=== PATIENT | male | born 1970 | race Caucasian/White ===

== ENCOUNTER 2019-09-07 06:16 | Outpatient (CLI) | payer MEDICARE, SELFPAY ==
[2019-09-07 17:27] LABS: SARS-CoV-2 RNA PCR Negative
== END 2019-09-07 06:17 | disposition home or self-care (01) ==
LOC: ANHCOVIDDT 06:16
PROVIDERS: Visit Provider Internal Medicine Gastroenterology
DX: Z01.812 Encounter for preprocedural laboratory examination (principal); Z11.59 Encounter for screening for other viral diseases
CPT/HCPCS: 87635; C9803; U0003

== ENCOUNTER 2019-09-10 03:03 | Day surgery (SDC) | payer MEDICARE, SELFPAY ==
[2019-09-03 12:31] VITALS: BMI 27.6
[2019-09-10 06:23] VITALS: BP 116/78; PULSE 97; RESP 18; TEMP 36.6; O2SAT 98
[2019-09-10] MEDS: LACTATED RINGERS 1,000 ML 150 ML IV CONT (06:36)
--- NOTE | 2019-09-10 07:46 | WPDANESEPPF ---
Anes - Initial Pre Proc Eval Procedure: Operation Date: 09/10/19 08:00 Proposed Procedures p Screening Colonoscopy - Sawyer Fernando MD Date/Time: 09/10/19 07:46 Surgeon: Sawyer Fernando MD Pre Op Diagnosis: Neoplasm Screening Patient Data Age: 49 Gender: M Height: 5 ft 11 in Weight: 92.3 kg Last Vital Signs Temp 97.9 F 09/10/19 06:23 Pulse 97 09/10/19 06:23 Resp 18 09/10/19 06:23 BP 116/78 09/10/19 06:23 Pulse Ox 98 09/10/19 06:23 Allergies Allergy/AdvReac Type Severity Reaction Status Date / Time No Known Allergies Allergy Unverified 11/15/17 16:38 Home Medications Medication Instructions Recorded Confirmed Type benazepril 20 mg tablet 20 mg PO BID #180 tablet 06/26/19 09/03/19 Rx hydrochlorothiazide 25 mg tablet 25 mg PO DAILY #90 tablet 06/26/19 09/03/19 Rx potassium chloride 10 mEq 10 meq PO DAILY #90 tablet 06/26/19 09/03/19 Rx tablet,extended release Patient hx anesthesia problems: none Family hx anesthesia problems: none PMFSH Social History Social History Smoking status: Never smoker Second hand tobacco smoke exposure: No Alcohol intake: never Anes - Eval Final PreProcedure Day of Procedure 09/10/19 07:46 Patient weight: normal Heart: regular rate and rhythm Lungs: clear to auscultation Airway: Mallampati scale class II Neurological: alert and oriented Last oral intake: >/= 8 hours ASA classification: II Emergent: no Anesthetic plan: proceed Anesthesia type and monitoring: general GIVS and standard monitoring Informed Consent: The patient's anesthetic plan and its attendant risks and benefits were discussed with the patient/family/POA. Questions were solicited and answers provided to the satisfaction of the patient/family/POA.
--- NOTE | 2019-09-10 08:00 | PM.HPGS ---
History of Present Illness History of Present Illness Consent: Risks, benefits, and alternatives have been discussed and questions answered. Patient agrees to proceed with procedure. Chief complaint: Neoplasm Screening Narrative: Moses Christensen is a 49 year old male here for first colonoscopy Review of Systems Constitutional: Constitutional: Denies headache(s) and Denies weakness Eyes: Eyes: Denies blurry vision ENT: Reports Normal hearing present, Denies headache(s) and Denies neck pain Cardiovascular: Cardiovascular: Denies chest pain and Denies dyspnea Respiratory: Respiratory: Denies dyspnea Gastrointestinal: Gastrointestinal: Reports no additional gastrointestinal complaints Genitourinary: Genitourinary: Denies dysuria Musculoskeletal: Musculoskeletal: Denies neck pain Integumentary/Breasts: Skin/Breast: Denies dry skin Neurologic: Reports Normal hearing present, Denies headache(s) and Denies weakness Psychiatric: Psychiatric: Denies anxiety Endocrine: Endocrine: Denies change in body appearance Hematologic/Lymphatic: Hematologic/Lymphatic: Denies easy bleeding Allergic/Immunologic: Allergic/Immunologic: Denies urticaria PMFSH Social History Social History Smoking status: Never smoker Second hand tobacco smoke exposure: No Alcohol intake: never Meds Home Medications and Allergies Home Medications Medication Instructions Recorded Confirmed Type benazepril 20 mg tablet 20 mg PO BID #180 tablet 06/26/19 09/03/19 Rx hydrochlorothiazide 25 mg tablet 25 mg PO DAILY #90 tablet 06/26/19 09/03/19 Rx potassium chloride 10 mEq 10 meq PO DAILY #90 tablet 06/26/19 09/03/19 Rx tablet,extended release Allergies Allergy/AdvReac Type Severity Reaction Status Date / Time No Known Allergies Allergy Unverified 11/15/17 16:38 Vital Signs Vital Signs - 24 hr 09/10/19 06:23 Temperature 97.9 F Pulse Rate 97 Respiratory Rate 18 Blood Pressure 116/78 Pulse Oximetry 98 Exam Const: General: comfortable and no acute distress HENMT: General nose exam: Normal nares present Eyes: General: appearance normal, both eyes and all related structures Neck: Neck: no JVD Resp: Auscultation: clear to auscultation bilaterally Cardio: Rate: regular rate Rhythm: regular rhythm GI: Inspection: non-distended GI Palp: Yes Soft to palpation Skin: General skin exam: normal color Neuro: General: gait normal Speech: normal speech Extrem: General: normal to inspection Psych: Mental Status: mental status grossly normal Assessment and Plan Assessment and plan (1) Colon cancer screening: Code(s): Z12.11 - Encounter for screening for malignant neoplasm of colon Status: Acute Assessment and Plan: will proceed with colonoscopy (2) Essential hypertension: Code(s): I10 - Essential (primary) hypertension Status: Chronic
[2019-09-10 08:20] VITALS: BP 79/46; PULSE 74; RESP 20; O2SAT 96
[2019-09-10 08:30] VITALS: BP 80/52; PULSE 95; RESP 20; O2SAT 97
[2019-09-10 08:40] VITALS: BP 106/70; PULSE 80; RESP 20; O2SAT 100
== END 2019-09-10 09:21 | disposition home or self-care (01) ==
PROVIDERS: PCP Family Medicine; Visit Provider Internal Medicine Gastroenterology
PROC: 0DJD8ZZ Inspection of Lower Intestinal Tract, Via Natural or Artificial Opening Endoscopic (ICD-10-PCS; CPT 45378; principal; 2019-09-10 08:00)
DX: Z12.11 Encounter for screening for malignant neoplasm of colon (principal); K63.5 Polyp of colon; K64.8 Other hemorrhoids
CPT/HCPCS: 45385; 87635; 88305; C9803; J2704; J7120; U0003

== ENCOUNTER 2021-02-12 15:26 | Emergency (ER) | payer MEDICARE, SELFPAY ==
[2021-02-12 15:38] VITALS: BP 134/76; PULSE 73; RESP 16; TEMP 36.5; O2SAT 100
--- NOTE | 2021-02-12 15:51 | ED.EXTPRO ---
HPI - Extremity Problem General Chief complaint: Extremity Problem,Nontraumatic Stated complaint: rt big toe pain Time Seen by Provider: 02/12/21 15:51 Source: patient Mode of arrival: ambulatory Limitations: no limitations History of Present Illness HPI Narrative: Moses Christensen is a 50 yo male with PMH of HTN who comes with a swollen l right great toe along toenail, medial side. She went started but states discussed the point where it is painful enough he can ignore it. Denies having diabetes or other injury to toenail or cutting until done Related Data Allergies Allergy/AdvReac Type Severity Reaction Status Date / Time No Known Allergies Allergy Verified 12/15/20 13:09 Review of Systems Review of Systems: CONSTITUTIONAL: Denies fever, chills, sweats. EYES: Denies visual changes, redness, discharge. ENT: Denies rhinorrhea, congestion, sore throat, otalgia. CARDIOVASCULAR: Denies chest pain, palpitations, edema. RESPIRATORY: Denies dyspnea, wheezing, cough GASTROINTESTINAL: Denies abdominal pain, nausea, vomiting, diarrhea. GENITOURINARY: Denies dysuria, hematuria, abnormal discharge SKIN: Denies rash or itching. NEUROLOGIC: Denies numbness, or focal weakness. PSYCHIATRIC: Denies anxiety or depression. Right great toe swelling along nail PMFSH Past Medical History Medical History Combined hyperlipidemia Essential hypertension History of asthma childhood Surgical History Surgical History Hx of foot surgery (~2004) benign tumor removed Family History Family History Grandparent Diabetes mellitus Hypertension Cerebrovascular accident Carcinoma of colon Family history of heart disease in male family member before age 55 Father Family history of cardiovascular disease Family history of type 2 diabetes mellitus Hypertension Family history of heart disease in male family member before age 55 Mother Family history of Parkinson's disease Social History Social History Smoking status: Never smoker Second hand tobacco smoke exposure: No Alcohol intake: never Comments At time of signature, I agree with nursing past medical, surgical, social and family history. There is no relevant family history pertinent to the presenting complaint. Exam Narrative: GENERAL: This is a well-nourished, well-developed patient, in mild distress. HEAD: normocephalic, atraumatic. EYES: Sclera clear/white. Vision is grossly intact. EARS: External ears normal, . Hearing grossly intact. NOSE: External nose normal without nasal discharge, nares without redness, no rhinorrhea. THROAT: Mucous membranes moist, NECK: Neck supple, CARDIOVASCULAR: Regular rate and rhythm without murmurs, gallops, or rubs. RESPIRATORY: Clear to auscultation. Breath sounds equal bilaterally. No wheezes, rales, or rhonchi. GASTROINTESTINAL: Abdomen soft, SKIN: warm, intact with no suspicious lesions or rash, good texture and turgor. Right great toe paronychia on the medial side of nail NEURO: awake, alert, and oriented to person, place and time. There were no obvious focal neurologic abnormalities. Steady gait EXTREMITIES: Normal range of motion. BACK: Nontender without deformity Course Course Emergency Course: Patient comes with right great toe swelling along the nail and is tender Foot soak for 10 minutes in tech care and warm water; paronychia opened with an 18-gauge needle and expressed about 4 cc of purulent drainage, wrapped foot with 4 x 4 and Haris and will put in postop shoe Started on Keflex Vital Signs Vital signs: Vital Signs Temperature 97.7 F 02/12/21 15:38 Pulse Rate 73 02/12/21 15:38 Respiratory Rate 16 02/12/21 15:38 Blood Pressure 134/76 02/12/21 15:38 Pulse Oximetry 100 02/12/21 15:38
== END 2021-02-12 16:22 | disposition home or self-care (01) ==
PROVIDERS: Emergency Provider Nurse Practitioner; PCP Family Medicine
DX: L03.031 Cellulitis of right toe (principal); I10 Essential (primary) hypertension; E78.2 Mixed hyperlipidemia
CPT/HCPCS: 99213; G0463

== ENCOUNTER 2021-09-11 17:06 | Emergency (ER) | payer BC, SELFPAY ==
--- NOTE | 2021-09-11 17:20 | ED.URI ---
HPI - URI/Sore Throat General Chief Complaint: Upper Respiratory Infection Stated Complaint: sinus drainage Time Seen by Provider: 09/11/21 17:30 Source: patient and RN notes reviewed Mode of arrival: ambulatory Limitations: no limitations History of Present Illness HPI Narrative: 51-year-old male presents with concern for approximately 2-week history of sinus congestion, drainage, cough, sneezing. He denies fever. He denies shortness of breath. He reports he has been trying cough drops, cold water with little relief. He denies shortness of breath, nausea, vomiting, diarrhea. MD elicited complaint: rhinorrhea and nasal congestion Related Data Allergies Allergy/AdvReac Type Severity Reaction Status Date / Time No Known Allergies Allergy Verified 09/11/21 17:28 Review of Systems Review of Systems: CONSTITUTIONAL: Denies malaise, chills, sweats, or fever. EYES: Denies visual changes, redness, or discharge. ENT: Reports rhinorrhea, congestion. Denies sinus pain, otalgia and sore throat. CARDIOVASCULAR: Denies chest pain, palpitations, or edema. RESPIRATORY: Reports cough. Denies dyspnea. GASTROINTESTINAL: Denies abdominal pain, nausea, vomiting, diarrhea SKIN: Denies rash or itching. MUSCULOSKELETAL: Denies myalgia. NEUROLOGIC: Denies headache. All systems reviewed & are unremarkable except as noted in HPI and below PMFSH Past Medical History Medical History Combined hyperlipidemia Essential hypertension History of asthma childhood Surgical History Surgical History Hx of foot surgery (~2004) benign tumor removed Family History Family History Grandparent Diabetes mellitus Hypertension Cerebrovascular accident Carcinoma of colon Family history of heart disease in male family member before age 55 Father Family history of cardiovascular disease Family history of type 2 diabetes mellitus Hypertension Family history of heart disease in male family member before age 55 Mother Family history of Parkinson's disease Social History Social History (Updated 06/22/21 @ 13:16 by Sujatha [place]) Smoking status: Never smoker Second hand tobacco smoke exposure: No Alcohol intake: current Substance use: never Substance use type: does not use Comments At time of signature, agree with nursing past medical, surgical, social and family history. There is no relevant family history pertinent to the presenting complaint Exam Narrative: GENERAL: Well-appearing, well-nourished, and in no acute distress. HEAD: Normocephalic EYES: PERRLA, conjunctivae clear ENT: Nares clear, turbinates edematous and erythematous sinus tenderness. Mucous membranes moist. TM pearly sharif with dull light reflex bilaterally; no tragal tenderness. Oropharynx not erythematous without lesions. Tonsils not enlarged and without exudate, no drooling, no hoarseness, no trismus, uvula midline. NECK: Supple. No lymphadenopathy CHEST: Clear to auscultation, breath sounds equal. No wheezing, rhonchi, rales, or stridor. No respiratory distress, speaks in full sentences. HEART: Regular rate and rhythm. No murmur heard. SKIN: Warm, dry, no rash. NEURO: Alert and oriented x3. PSYCH: Normal mood and affect Course Course Emergency Course: Patient is aware of diagnosis, understands and agrees to treatment plan. Anticipatory guidance given. Patient agrees to follow-up as directed and is aware of reasons to seek care at the emergency department. Portions of this record may have been created with voice recognition software Level of Care: Express Care Visit Vital Signs Vital signs: Reviewed. MDM - URI/Sore Throat MDM Narrative Medical decision making narrative: Differential diagnosis considered: Teague virus, strep pharyngitis, allergic rhinitis, upper respiratory tract infection, sinusitis
[2021-09-11 17:34] VITALS: BP 121/81; PULSE 88; RESP 16; TEMP 36.2; O2SAT 99
== END 2021-09-11 17:39 | disposition home or self-care (01) ==
PROVIDERS: Emergency Provider Nurse Practitioner; PCP Family Medicine
DX: J32.9 Chronic sinusitis, unspecified (principal); J40 Bronchitis, not specified as acute or chronic; E78.2 Mixed hyperlipidemia; I10 Essential (primary) hypertension
CPT/HCPCS: 99213; G0463

== ENCOUNTER 2022-10-24 14:40 | Emergency (ER) | payer BC, SELFPAY ==
[2022-10-24 14:50] VITALS: BP 105/68; PULSE 127; RESP 16; TEMP 37; O2SAT 100
--- NOTE | 2022-10-24 14:51 | ED.GENADULT ---
HPI - General Adult General Chief complaint: Back Pain/Injury Stated complaint: Back spasm's Time Seen by Provider: 10/24/22 14:51 Source: patient, RN notes reviewed and old records reviewed Mode of arrival: ambulatory Limitations: no limitations History of Present Illness HPI narrative: 52-year-old male with a history of autism a presents for generalized lower back pain. States he has had intermittent pain since Monday. No treatment prior to arrival. Currently pain-free. Unable to reproduce pain with movement and palpation. nothing makes the pain better or worse. Denies abdominal pain. Denies any loss of control of bowel or bladder. No numbness or tingling in extremities. No midline tenderness Onset (ago): day(s) (2) Treatments prior to arrival: none Related Data Allergies Allergy/AdvReac Type Severity Reaction Status Date / Time No Known Allergies Allergy Verified 10/24/22 14:59 Review of Systems Review of Systems: All systems reviewed & are unremarkable except as noted in HPI and below Constitutional: Constitutional: Reports no additional constitutional complaints Eyes: Eyes: Reports no additional eye complaints ENT: Reports system reviewed and no additional complaints, except as documented Cardiovascular: Cardiovascular: Reports no additional cardiovascular complaints, Denies chest pain and Denies dyspnea Respiratory: Respiratory: Reports no additional respiratory complaints, Denies chest congestion, Denies cough and Denies dyspnea Gastrointestinal: Gastrointestinal: Reports no additional gastrointestinal complaints, Denies abdominal pain, Denies nausea and Denies vomiting Musculoskeletal: Musculoskeletal: Reports as per HPI and Reports back pain (Lumbar lower) Integumentary/Breasts: Skin/Breast: Reports system reviewed and no additional complaints, except as docu Neurologic: Reports system reviewed and no additional complaints, except as documented Psychiatric: Psychiatric: Reports no additional psychiatric complaints Allergic/Immunologic: Allergic/Immunologic: Reports no additional allergic/immunologic complaints [facility] Past Medical History Medical History Autism Combined hyperlipidemia Essential hypertension History of asthma childhood Surgical History Surgical History Hx of foot surgery (~2004) benign tumor removed Family History Family History Grandparent Diabetes mellitus Hypertension Cerebrovascular accident Carcinoma of colon Family history of heart disease in male family member before age 55 Father Family history of cardiovascular disease Family history of type 2 diabetes mellitus Hypertension Family history of heart disease in male family member before age 55 Mother Family history of Parkinson's disease Social History Social History Smoking status: Never smoker Second hand tobacco smoke exposure: No Alcohol intake: current Substance use: never Substance use type: does not use Lack of Transportation: No Lack of Food: Never True Current Housing: I Have Housing Concerned About Future Housing: No Difficulty Paying Gas/Electric Bills: No Difficulty Paying for Meds: No Currently Unemployed: No Education: Associate Degree Difficulty w/ Childcare or Family Care: No Comments At the time of my signature, I reviewed and agree with the nursing past medical, surgical, social, and family history. There is no relevant family history pertinent to the patient complaint. Exam Const: General: cooperative, healthy appearing, comfortable, no acute distress, well developed, alert and well nourished Nutritional Appearance: well nourished Orientation/consciousness: patient oriented x3 Limitations: no limitations HENMT: Head: normal to inspe
== END 2022-10-24 15:08 | disposition home or self-care (01) ==
PROVIDERS: Emergency Provider Nurse Practitioner; PCP Family Medicine
DX: S39.012A Strain of muscle, fascia and tendon of lower back, initial encounter (principal); X58.XXXA Exposure to other specified factors, initial encounter; F84.0 Autistic disorder; E78.2 Mixed hyperlipidemia; I10 Essential (primary) hypertension
CPT/HCPCS: 99212; G0463

== ENCOUNTER 2022-10-31 15:55 | Outpatient (CLI) | payer BC, SELFPAY ==
--- NOTE | ~2022-10-31 | XR_ITS ---
XR abdomen/kub 1V DATE: 10/31/2022 16:07 INDICATION: Abdominal pain TECHNIQUE: 2 AP views COMPARISON: None FINDINGS: The psoas shadows are intact. No visceromegaly or significant abnormal calcification is not ed. No evidence of bowel obstruction. Included skeletal structures are unremarkable. IMPRESSION: Negative Reviewed, dictated and finalized at [facility]. Reviewed, dictated and finalized at [facility]. IMPRESSION: Negative
== END 2022-10-31 15:56 | disposition home or self-care (01) ==
LOC: ANHIMG 15:57
PROVIDERS: PCP Family Medicine; Visit Provider Nurse Practitioner Family
DX: R39.9 Unspecified symptoms and signs involving the genitourinary system (principal); R10.9 Unspecified abdominal pain
CPT/HCPCS: 74018

== ENCOUNTER 2022-12-03 08:13 | Emergency (ER) | payer BC, SELFPAY ==
[2022-12-03 08:20] VITALS: BP 114/78; PULSE 109; RESP 20; TEMP 36.8; O2SAT 96
--- NOTE | 2022-12-03 08:28 | ED.GENADULT ---
HPI - General Adult General Chief complaint: Urogenital-Male Stated complaint: Constipation Time Seen by Provider: 12/03/22 08:28 Source: patient, RN notes reviewed and old records reviewed Mode of arrival: ambulatory Limitations: no limitations History of Present Illness HPI narrative: 52-year-old male presents to the [facility] with complaints of urinary issues, had a catheter removed yesterday Patient is autistic, not a good historian. Not sure why he had the catheter except for bedwetting. Onset (ago): day(s) (1) Related Data Allergies Allergy/AdvReac Type Severity Reaction Status Date / Time No Known Allergies Allergy Verified 12/03/22 08:35 Review of Systems Review of Systems: All systems reviewed & are unremarkable except as noted in HPI and below Constitutional: Constitutional: Reports no additional constitutional complaints Eyes: Eyes: Reports no additional eye complaints ENT: Reports system reviewed and no additional complaints, except as documented Cardiovascular: Cardiovascular: Reports no additional cardiovascular complaints, Denies chest pain and Denies dyspnea Respiratory: Respiratory: Reports no additional respiratory complaints, Denies chest congestion, Denies cough and Denies dyspnea Gastrointestinal: Gastrointestinal: Reports no additional gastrointestinal complaints, Denies abdominal pain, Denies nausea and Denies vomiting Genitourinary: Genitourinary: Reports as per HPI Musculoskeletal: Musculoskeletal: Reports no additional musculoskeletal complaints Integumentary/Breasts: Skin/Breast: Reports system reviewed and no additional complaints, except as docu Neurologic: Reports system reviewed and no additional complaints, except as documented Psychiatric: Psychiatric: Reports no additional psychiatric complaints Allergic/Immunologic: Allergic/Immunologic: Reports no additional allergic/immunologic complaints [facility] Past Medical History Medical History Autism Combined hyperlipidemia Essential hypertension History of asthma childhood Nocturnal enuresis Surgical History Surgical History Hx of foot surgery (~2004) benign tumor removed Family History Family History Grandparent Diabetes mellitus Hypertension Cerebrovascular accident Carcinoma of colon Family history of heart disease in male family member before age 55 Father Family history of cardiovascular disease Family history of type 2 diabetes mellitus Hypertension Family history of heart disease in male family member before age 55 Mother Family history of Parkinson's disease Social History Social History Smoking status: Never smoker Second hand tobacco smoke exposure: No Alcohol intake: current Substance use: never Substance use type: does not use Lack of Transportation: No Lack of Food: Never True Current Housing: I Have Housing Concerned About Future Housing: No Difficulty Paying Gas/Electric Bills: No Difficulty Paying for Meds: No Currently Unemployed: No Education: Associate Degree Difficulty w/ Childcare or Family Care: No Comments At the time of my signature, I reviewed and agree with the nursing past medical, surgical, social, and family history. There is no relevant family history pertinent to the patient complaint. Exam Const: General: cooperative, healthy appearing, comfortable, no acute distress, well developed, alert and well nourished Nutritional Appearance: well nourished Orientation/consciousness: patient oriented x3 Limitations: no limitations HENMT: Head: normal to inspection Ears: hearing grossly normal bilaterally and external ears normal Face/Nose/Sinus: Normal external nose present, Normal nares present, Normal nasal mucous membranes and turbina
== END 2022-12-03 08:45 | disposition home or self-care (01) ==
PROVIDERS: Emergency Provider Nurse Practitioner; PCP Family Medicine
DX: T83.511A Infection and inflammatory reaction due to indwelling urethral catheter, initial encounter (principal); E78.49 Other hyperlipidemia; I10 Essential (primary) hypertension
CPT/HCPCS: 81003; 87077; 87086; 87186; 99213; G0463

== ENCOUNTER 2022-12-14 14:26 | Emergency (ER) | payer BC, SELFPAY ==
[2022-12-14 14:37] VITALS: BP 115/74; PULSE 88; RESP 16; TEMP 36.6; O2SAT 99
--- NOTE | 2022-12-14 14:57 | ED.MALEGU ---
HPI - Male Genitourinary General Chief complaint: Urogenital-Male Stated complaint: Male Urinary Problems Time Seen by Provider: 12/14/22 14:55 Source: patient, RN notes reviewed and old records reviewed Mode of arrival: ambulatory Limitations: no limitations History of Present Illness HPI Narrative: 52 year old male who presents to express care with complaints of blood noted in his urine. Patient states that he has catheter in place. Patient was seen today at urology doctors' office for urine dynamics study in [place] today through the [facility] urology group. Patient reports he is concerned he has infection again and wants his urine checked.Doctor Office called and nurse spoke to urology tech and she reported that patient had test done today and that sometimes afterwards blood is noted. Patient is to return to office on the for cystoscopy and follow up appointment. patient was initially seem by urology on the and they did bladder scan and patient was found to have 600 ml in urine residual so catheter was inserted at that time with follow up in their office today for test and replacement of catheter. Patient is autistic and patient is having difficulty coordinating care and what is all going on in regards to urine problem. Patient was initially seen in this clinic on 12/03/2022 with UTI found and antibiotic given with culture found to be positive for Klebsiella pneumoniae and patient was treated with Augmentin. MD Complaint: other (blood in urine and some urinary pain.) Onset (ago): day(s) (today) Duration: constant Related Data Allergies Allergy/AdvReac Type Severity Reaction Status Date / Time No Known Allergies Allergy Verified 12/14/22 14:58 Review of Systems Review of Systems: CONSTITUTIONAL: Denies fever, chills, or sweats. CARDIOVASCULAR: Denies chest pain, palpitations, or edema. RESPIRATORY: Denies cough or dyspnea. GASTROINTESTINAL: Denies abdominal pain, nausea, vomiting, or diarrhea. GENITOURINARY: Reports dysuria, blood noted in urine and #16 catheter connected to leg bag in place, concern voiced for infection. Denies flank pain SKIN: Denies rash or itching. MUSCULOSKELETAL: Denies back pain or myalgia. Denies CVA tenderness NEUROLOGIC: Denies headache All systems reviewed & are unremarkable except as noted in HPI and below PMFSH Past Medical History Medical History Autism Combined hyperlipidemia Essential hypertension History of asthma childhood Nocturnal enuresis Surgical History Surgical History Hx of foot surgery (~2005) benign tumor removed Family History Family History Grandparent Diabetes mellitus Hypertension Cerebrovascular accident Carcinoma of colon Family history of heart disease in male family member before age 55 Father Family history of cardiovascular disease Family history of type 2 diabetes mellitus Hypertension Family history of heart disease in male family member before age 55 Mother Family history of Parkinson's disease Social History Social History Smoking status: Never smoker Second hand tobacco smoke exposure: No Alcohol intake: current Substance use: never Substance use type: does not use Lack of Transportation: No Lack of Food: Never True Current Housing: I Have Housing Concerned About Future Housing: No Difficulty Paying Gas/Electric Bills: No Difficulty Paying for Meds: No Currently Unemployed: No Education: Associate Degree Difficulty w/ Childcare or Family Care: No Comments At time of signature, agree with nursing past medical, surgical, social and family history. There is no relevant family history pertinent to the presenting complaint Exam Narrative: GENERAL: Well-appearing, well-nourished, and i
== END 2022-12-14 15:25 | disposition home or self-care (01) ==
PROVIDERS: Emergency Provider Registered Nurse; PCP Family Medicine
DX: R30.0 Dysuria (principal); R31.9 Hematuria, unspecified; F84.0 Autistic disorder; E78.2 Mixed hyperlipidemia
CPT/HCPCS: 81003; 87077; 87086; 87186; 99213; G0463

== ENCOUNTER 2023-01-20 05:44 | Emergency (ER) | payer BC, MEDICARE, SELFPAY ==
[2023-01-20 05:47] VITALS: BP 147/81; PULSE 100; RESP 15; TEMP 36.4; O2SAT 100
--- NOTE | 2023-01-20 06:18 | ED.MALEGU ---
HPI - Male Genitourinary General Chief complaint: Urogenital-Male Stated complaint: catheter leaking Time Seen by Provider: 01/20/23 06:09 History of Present Illness HPI Narrative: This is a 52-year-old male, with history of urinary retention and autism, who presents to the emergency department stating that his catheter bag is leaking. The patient denies penile pain, leakage of urine at the penis or bleeding. He states the catheter otherwise seems to be functioning well. He tried to repair the bed with tape without success. He has no other complaints at this time. Related Data Allergies Allergy/AdvReac Type Severity Reaction Status Date / Time No Known Allergies Allergy Verified 12/29/22 13:31 Review of Systems Review of Systems: CONSTITUTIONAL: Denies fever, chills, or sweats. CARDIOVASCULAR: Denies chest pain, palpitations, or edema. GASTROINTESTINAL: Denies abdominal pain, nausea, vomiting, or diarrhea. GENITOURINARY: Denies dysuria or hematuria. MUSCULOSKELETAL: Denies back pain, joint pain, or myalgia. NEUROLOGIC: Denies headache, numbness, dizziness, or weakness. PSYCHIATRIC: Denies anxiety or depression. [facility] Past Medical History Medical History Autism BPH (benign prostatic hyperplasia) Cervical muscle strain Combined hyperlipidemia Essential hypertension History of asthma childhood Nocturnal enuresis Surgical History Surgical History Hx of foot surgery (~2004) benign tumor removed Family History Family History Grandparent Diabetes mellitus Hypertension Cerebrovascular accident Carcinoma of colon Family history of heart disease in male family member before age 55 Father Family history of cardiovascular disease Family history of type 2 diabetes mellitus Hypertension Family history of heart disease in male family member before age 55 Mother Family history of Parkinson's disease Social History Social History Smoking status: Never smoker Second hand tobacco smoke exposure: No Alcohol intake: current Substance use: never Substance use type: does not use Lack of Transportation: No Lack of Food: Never True Current Housing: I Have Housing Concerned About Future Housing: No Difficulty Paying Gas/Electric Bills: No Difficulty Paying for Meds: No Currently Unemployed: No Education: Associate Degree Difficulty w/ Childcare or Family Care: No Exam Narrative: GENERAL: Well-appearing, well-nourished, and in no acute distress. HEAD: Normocephalic, atraumatic. EYES: PERRLA and EOMI. CHEST: Clear to auscultation. No respiratory distress. No wheezes rales or rhonchi HEART: Regular rate and rhythm. No murmur heard. Normal peripheral pulses. ABDOMEN: Soft, nontender, nondistended, normal active bowel sounds. : Normal external male genitalia, circumcised, a Garcia catheter is in place draining clear yellow urine. There is no noted leakage of urine or bleeding at the urethral meatus. Leakage of urine from the patient's leg bag is noted with a small hole repaired with tape. EXTREMITIES: Normal range of motion. No edema. PSYCH: Normal mood and affect. Course Course Emergency Course: 06:15 - Bedside ultrasound performed by sc shows Garcia catheter bulb in place and a decompressed bladder. Will replace the patient's leg bag. The patient has a follow-up appointment with his urologist in 4 days for normal catheter replacement. 06:38 - Leg bag replaced by nursing staff with no further leakage. Will discharge. Discussed return and emergency precautions including signs/symptoms of acute abdomen and UTI. The patient voiced understanding and is comfortable with the plan. All questions answered to his satisfaction. Vital Signs Vital signs: Vit
== END 2023-01-20 06:41 | disposition home or self-care (01) ==
PROVIDERS: Emergency Provider Preventive Medicine Aerospace Medicine; PCP Family Medicine
DX: T83.011A Breakdown (mechanical) of indwelling urethral catheter, initial encounter (principal); E78.5 Hyperlipidemia, unspecified; I10 Essential (primary) hypertension; J45.909 Unspecified asthma, uncomplicated
CPT/HCPCS: 99282

== ENCOUNTER 2023-02-08 20:08 | Emergency (ER) | payer BC, MEDICARE, SELFPAY ==
[2023-02-08 20:23] VITALS: BP 122/69; PULSE 65; RESP 12; TEMP 36.6; O2SAT 98
== END 2023-02-08 21:03 | disposition left against medical advice (07) ==
PROVIDERS: PCP Family Medicine
DX: T83.098A Other mechanical complication of other urinary catheter, initial encounter (principal)
CPT/HCPCS: 99199

== ENCOUNTER 2023-04-08 16:49 | Emergency (ER) | payer BC, MEDICARE, SELFPAY ==
[2023-04-08 16:56] VITALS: BP 118/84; PULSE 88; RESP 16; TEMP 36.6; O2SAT 98
--- NOTE | 2023-04-08 16:58 | ED.MALEGU ---
HPI - Male Genitourinary General Chief complaint: Urogenital-Male Stated complaint: Blood In Urine Time Seen by Provider: 04/08/23 16:59 Source: patient and RN notes reviewed Mode of arrival: ambulatory Limitations: no limitations History of Present Illness HPI Narrative: 53 y/o male presented for c/o blood in the urine yesterday. States while having a BM he noticed blood to the urethra draining into the bladder bag. States he uses the bag due to hx incontinence. Denies abdominal pain, flank pain, vomiting, or fever. Related Data Allergies Allergy/AdvReac Type Severity Reaction Status Date / Time No Known Allergies Allergy Verified 12/29/22 13:31 Review of Systems Review of Systems: CONSTITUTIONAL: Denies body aches, fever, chills, or sweats. CARDIOVASCULAR: Denies chest pain, palpitations, or edema. RESPIRATORY: Denies cough or dyspnea. GASTROINTESTINAL: Denies abdominal pain, nausea, vomiting, or diarrhea. GENITOURINARY: Reports hematuria, denies dysuria, frequency, urgency, flank pain SKIN: Denies rash, itching, or wounds. MUSCULOSKELETAL: Denies back pain or myalgia. [facility] Past Medical History Medical History Autism BPH (benign prostatic hyperplasia) Cervical muscle strain Combined hyperlipidemia Essential hypertension History of asthma childhood Nocturnal enuresis Surgical History Surgical History Hx of foot surgery (~2004) benign tumor removed Family History Family History Grandparent Diabetes mellitus Hypertension Cerebrovascular accident Carcinoma of colon Family history of heart disease in male family member before age 55 Father Family history of cardiovascular disease Family history of type 2 diabetes mellitus Hypertension Family history of heart disease in male family member before age 55 Mother Family history of Parkinson's disease Social History Social History Smoking status: Never smoker Second hand tobacco smoke exposure: No Alcohol intake: current Substance use: never Substance use type: does not use Lack of Transportation: No Lack of Food: Never True Current Housing: I Have Housing Concerned About Future Housing: No Difficulty Paying Gas/Electric Bills: No Difficulty Paying for Meds: No Currently Unemployed: No Education: Associate Degree Difficulty w/ Childcare or Family Care: No Comments At time of signature, I have reviewed and agree with nursing past medical, surgical, social and family history unless otherwise noted. Please see nursing chart for further information. There is no relevant family history pertinent to the presenting complaint Exam Narrative: GENERAL: Well-appearing and in no acute distress. ENT: Mucous membranes pink and moist. NECK: Normal AROM. Supple. CHEST: No respiratory distress. Clear to auscultation. HEART: Regular rate and rhythm. ABDOMEN: Soft, nontender, nondistended, normal active bowel sounds. No CVA tenderness : yellow urine noted to urostomy bag. NEURO: No focal deficits. Alert and oriented x3. Gait steady. Course Course Emergency Course: Patient is aware of diagnosis, understands and agrees to treatment plan. Anticipatory guidance given. Patient agrees to follow-up as directed and is aware of reasons to seek care at the emergency department. Portions of this record may have been created with voice recognition software Level of Care: Express Care Visit Vital Signs Vital signs: Vital Signs Temperature 97.8 F 04/08/23 16:56 Pulse Rate 88 04/08/23 16:56 Respiratory Rate 16 04/08/23 16:56 Blood Pressure 118/84 04/08/23 16:56 Pulse Oximetry 98 04/08/23 16:56 Temperature 97.8 F 04/08/23 16:56 Pulse Rate 88 04/08/23 16:56 Respiratory Ra
== END 2023-04-08 17:28 | disposition home or self-care (01) ==
PROVIDERS: Emergency Provider Nurse Practitioner Family; PCP Family Medicine
DX: R31.29 Other microscopic hematuria (principal); F84.0 Autistic disorder; N40.0 Benign prostatic hyperplasia without lower urinary tract symptoms; I10 Essential (primary) hypertension; E78.2 Mixed hyperlipidemia
CPT/HCPCS: 81003; 87086; 99213; G0463

== ENCOUNTER 2023-05-09 21:13 | Emergency (ER) | payer BC, MEDICARE, SELFPAY ==
[2023-05-09 21:19] VITALS: BP 152/102; PULSE 76; RESP 18; TEMP 36.6; O2SAT 99
--- NOTE | 2023-05-09 23:58 | ED.MALEGU ---
HPI - Male Genitourinary General Chief complaint: Urogenital-Male Stated complaint: bladder spasms Time Seen by Provider: 05/09/23 23:48 History of Present Illness HPI Narrative: 53-year-old male with a history of BPH with chronic indwelling Garcia catheter, hypertension, hyperlipidemia autism reports for evaluation for catheter issues. Patient is reporting urge to urinate and feels like urine is leaking from the insertion site of his catheter. He is reporting pain to his suprapubic region. He is unsure of his catheter has been draining. Denies hematuria, dysuria, fever, nausea or vomiting. States he lives at home drove himself here. Reports he has a urologist in [place]. Related Data Allergies Allergy/AdvReac Type Severity Reaction Status Date / Time No Known Allergies Allergy Verified 12/29/22 13:31 Review of Systems Review of Systems: CONSTITUTIONAL: Denies fever, chills, or sweats. EYES: Denies visual changes, redness, or discharge. ENT: Denies rhinorrhea, congestion, sore throat, or otalgia. CARDIOVASCULAR: Denies chest pain, palpitations, or edema. RESPIRATORY: Denies cough or dyspnea. GASTROINTESTINAL: See HPI GENITOURINARY: See HPI SKIN: Denies rash or itching. MUSCULOSKELETAL: Denies back pain, joint pain, or myalgia. NEUROLOGIC: Denies headache, numbness, or weakness. PSYCHIATRIC: Denies anxiety or depression. [facility] Past Medical History Medical History Autism BPH (benign prostatic hyperplasia) Cervical muscle strain Combined hyperlipidemia Essential hypertension History of asthma childhood Nocturnal enuresis Surgical History Surgical History Hx of foot surgery (~2004) benign tumor removed Family History Family History Grandparent Diabetes mellitus Hypertension Cerebrovascular accident Carcinoma of colon Family history of heart disease in male family member before age 55 Father Family history of cardiovascular disease Family history of type 2 diabetes mellitus Hypertension Family history of heart disease in male family member before age 55 Mother Family history of Parkinson's disease Social History Social History Smoking status: Never smoker Second hand tobacco smoke exposure: No Alcohol intake: current Substance use: never Substance use type: does not use Lack of Transportation: No Lack of Food: Never True Current Housing: I Have Housing Concerned About Future Housing: No Difficulty Paying Gas/Electric Bills: No Difficulty Paying for Meds: No Currently Unemployed: No Education: Associate Degree Difficulty w/ Childcare or Family Care: No Exam Narrative: GENERAL: Nontoxic appearing. Appears uncomfortable HEAD: Normocephalic, atraumatic. EYES: PERRLA and EOMI. ENT: Nares clear, no rhinorrhea or epistaxis. Mucous membranes moist. NECK: Supple. CHEST: Clear to auscultation. No respiratory distress. HEART: Regular rate and rhythm. No murmur heard. Normal peripheral pulses. ABDOMEN: Normoactive bowel sounds. Abdomen soft with distention and tenderness in the suprapubic region. No rebound, guarding or rigidity. No CVA tenderness. : No scrotal edema or tenderness. No penile edema or rashes. Urethral meatus with erythema and scant amount of purulent drainage. EXTREMITIES: Normal range of motion. No edema. SKIN: Warm, dry, no rash. NEURO: No focal deficits. Alert and oriented x3 Course Vital Signs Vital signs: Vital Signs Temperature 97.8 F 05/09/23 21:19 Pulse Rate 76 05/09/23 21:19 Respiratory Rate 18 05/09/23 21:19 Blood Pressure 152/102 H 05/09/23 21:19 Pulse Oximetry 99 05/09/23 21:19 Oxygen Delivery Room Air 05/09/23 21:19 Temperature 97.8 F 05/09/23 21:19 Pulse
[2023-05-10 00:30] VITALS: BP 125/76; PULSE 77; RESP 15; O2SAT 97
[2023-05-10 00:47] LABS: Appearance Urine Turbid (Clear); Bacteria Urine 4+ /hpf; Bilirubin Urine Negative (Negative); Blood Urine 3+ (Negative); Color Urine Yellow (Yellow); Glucose Urine UA Negative (Negative); Ketones Urine Negative (Negative); Leukocyte Esterase Ur 3+ LEU/UL (Negative); Nitrate Urine Positive (Negative); Non Pathogenic Casts 0-2; Protein Urine 1+ mg/dL (Negative); RBC Urine >100 /hpf (0-2); Specific Grav Ur 1.018 (1.001-1.035); Squamous Epithelial Cell Urine None seen /hpf (Few); Urobilinogen Urine 0.2 mg/dL (<2.0); WBC Urine >100 /hpf; pH Urine 5.5 (5.0-9.0)
[2023-05-10 00:49] LABS: Add Urine Microscopic? YES
[2023-05-10] MEDS: CEFDINIR 300 MG CAPSULE PO (01:13)
== END 2023-05-10 02:11 | disposition home or self-care (01) ==
PROVIDERS: Emergency Provider Physician Assistant; PCP Family Medicine
DX: T83.511A Infection and inflammatory reaction due to indwelling urethral catheter, initial encounter (principal); T83.9XXA Unspecified complication of genitourinary prosthetic device, implant and graft, initial encounter; E78.5 Hyperlipidemia, unspecified; I10 Essential (primary) hypertension
CPT/HCPCS: 51702; 81001; 87077; 87086; 87088; 87186; 99283; A9270

== ENCOUNTER 2023-06-16 15:08 | Outpatient (CLI) | payer BC, MEDICARE, SELFPAY | END 2023-06-16 15:09 | disposition home or self-care (01) | LOC: ANHGOSHLAB 15:11 | PROVIDERS: PCP Family Medicine | DX: N40.1 Benign prostatic hyperplasia with lower urinary tract symptoms (principal); R33.8 Other retention of urine | CPT/HCPCS: 87077; 87086; 87088; 87186 ==

== ENCOUNTER 2023-07-03 09:42 | Outpatient (CLI) | payer BC, MEDICARE, SELFPAY ==
[2023-07-03 18:43] LABS: Basophils Absolute Auto 0.1 K/mm3 (0.0-0.1); Basophils Percent Auto 0.6 % (0.2-1.2); Eosinophils Absolute Auto 0.2 K/mm3 (0-0.3); Eosinophils Percent Auto 2.2 % (0-4.4); Hematocrit 41.1 % (42.0-52.0); Hemoglobin 13.2 g/dL (14.0-18.0); Immature Granulocyte Absolute 0.05 K/mm3 (0.00-0.031); Immature Granulocyte Percent A 0.6 % (0-0.5); Lymphocytes Absolute Auto 1.99 K/mm3 (0.9-3.2); Lymphocytes Percent Auto 23.2 % (18.3-44.2); Mean Corpuscular HGB Conc 32.1 g/dl (32-36); Mean Corpuscular Hemoglobin 26.3 pg (26-34); Mean Corpuscular Volume 81.9 fl (80-100); Mean Platelet Volume 11.2 fl (7.4-10.4); Monocytes Percent Auto 11.5 % (2.6-8.5); Neutrophils Absolute Auto 5.3 K/mm3 (1.3-6.7); Neutrophils Percent Auto 61.9 % (45.5-73.1); Platelet Count Result 226 k/mm3 (150-375); Red Blood Count 5.02 M/mm3 (4.6-6.20); Red Cell Distribution Width 13.6 % (11.5-14.5); White Blood Count 8.6 K/mm3 (4.5-10.0)
[2023-07-03 19:29] LABS: Alanine Aminotransferase 16 U/L (6-50); Albumin Level 4.5 g/dL (3.5-5.1); Alkaline Phosphatase 73 U/L (38-126); Anion Gap 8 mmol/L (4-12); Aspartate Amino Transferase 31 U/L (17-59); Bilirubin,Total 1.2 mg/dL (0.2-1.3); Blood Urea Nitrogen 26 mg/dL (9-20); Calcium 9.5 mg/dL (8.4-10.2); Carbon Dioxide 27 mmol/L (22-30); Chloride 101 mmol/L (98-107); Cholesterol 183 mg/dL (0-200); Estimated Glomerular Filt Rate > 60; Glucose 109 mg/dL (65-110); HDL Direct 39 mg/dL; Potassium 3.8 mmol/L (3.4-5.0); Sodium 136 mmol/L (137-145); Triglycerides 74 mg/dL (<150)
[2023-07-03 19:33] LABS: Vitamin D 25 Hydroxy 21.4 ng/mL
[2023-07-03 19:40] LABS: LDL Cholesterol Direct 122 mg/dL
[2023-07-03 20:24] LABS: Hemoglobin A1C 5.4 % (<5.7)
== END 2023-07-03 09:43 | disposition home or self-care (01) ==
LOC: ANHGOSHLAB 09:43
PROVIDERS: PCP Family Medicine; Visit Provider Nurse Practitioner Family
DX: Z00.00 Encounter for general adult medical examination without abnormal findings (principal); E78.5 Hyperlipidemia, unspecified; I10 Essential (primary) hypertension; N40.0 Benign prostatic hyperplasia without lower urinary tract symptoms; Z13.29 Encounter for screening for other suspected endocrine disorder; R73.03 Prediabetes; E55.9 Vitamin D deficiency, unspecified
CPT/HCPCS: 36415; 80053; 80061; 82306; 83036; 84443; 85025

== ENCOUNTER 2023-07-05 14:02 | Outpatient (CLI) | payer BC, MEDICARE, SELFPAY | END 2023-07-05 14:03 | disposition home or self-care (01) | LOC: ANHGOSHLAB 14:05 | PROVIDERS: PCP Family Medicine | DX: N40.1 Benign prostatic hyperplasia with lower urinary tract symptoms (principal); R33.8 Other retention of urine | CPT/HCPCS: 87086 ==

== ENCOUNTER 2023-11-23 15:18 | Emergency (ER) | payer BC, MEDICARE, SELFPAY ==
--- NOTE | 2023-11-23 15:28 | ED.NECK ---
HPI - Neck Pain/Injury General Chief Complaint: Neck Pain/Injury Stated Complaint: Neck/Shoulder Pain Time Seen by Provider: 11/23/23 15:29 Source: patient Mode of arrival: ambulatory Limitations: no limitations History of Present Illness HPI Narrative: 53-year-old male presented for complaint of left-sided neck pain for the last 3 days. Denies known injury. Has taken 1 ibuprofen at night. Says pain is worse at night. Denies pain radiating into the arm, numbness, tingling, weakness of the extremity. Related Data Allergies Allergy/AdvReac Type Severity Reaction Status Date / Time No Known Allergies Allergy Verified 11/23/23 15:27 Review of Systems Review of Systems: CONSTITUTIONAL: Denies body aches, fever, chills, or sweats. EYES: Denies visual changes, redness, or discharge. CARDIOVASCULAR: Denies chest pain, palpitations, or edema. RESPIRATORY: Denies cough or dyspnea. GASTROINTESTINAL: Denies abdominal pain, nausea, vomiting, or diarrhea. SKIN: Denies rash, itching, or wounds. MUSCULOSKELETAL: Reports left neck pain NEUROLOGIC: Denies headache, numbness, tingling, or weakness. All systems reviewed & are unremarkable except as noted in HPI and below PMFSH Past Medical History Medical History Annual visit for general adult medical examination without abnormal findings Autism BPH (benign prostatic hyperplasia) Combined hyperlipidemia Essential hypertension History of asthma childhood Nocturnal enuresis Surgical History Surgical History History of prostate surgery Hx of foot surgery (~2004) benign tumor removed Family History Family History Grandparent Diabetes mellitus Hypertension Cerebrovascular accident Carcinoma of colon Family history of heart disease in male family member before age 55 Father Family history of cardiovascular disease Family history of type 2 diabetes mellitus Hypertension Family history of heart disease in male family member before age 55 Mother Family history of Parkinson's disease Social History Social History Smoking status: Never smoker Second hand tobacco smoke exposure: No Alcohol intake: current Substance use: never Substance use type: does not use Do You Feel Safe in your Home?: Yes Lack of Transportation: No Lack of Food: Never True Current Housing: I Have Housing Concerned About Future Housing: No Difficulty Paying Gas/Electric Bills: No Difficulty Paying for Meds: No Currently Unemployed: No Education: Associate Degree Difficulty w/ Childcare or Family Care: No Living arrangements: alone Occupation/Education: occupation Gender identity (if verbalized by the patient): Male Agree to blood products: Yes Comments At time of signature, I have reviewed and agree with nursing past medical, surgical, social and family history unless otherwise noted. Please see nursing chart for further information. There is no relevant family history pertinent to the presenting complaint Exam Narrative: GENERAL: Well-appearing ENT: Mucous membranes pink and moist. No rhinorrhea. TMs normal bilaterally. Throat normal. Uvula midline. NECK: Left neck/ trapezius tender with palpation Normal AROM, reports left neck pain with movement. Supple. No lymphadenopathy. No vertebral point tender CHEST: No respiratory distress. Clear to auscultation. HEART: Regular rate and rhythm.. MUSCULOSKELETAL: No bony tenderness. EXTREMITIES: Normal range of motion. SKIN: Warm, dry, no rash. Capillary refill normal. Normal skin turgor. NEURO: No focal deficits. Alert and oriented x3. Gait steady. Course Course Emergency Course: Patient is aware of diagnosis, understands and agrees to treatment plan. Anticipatory guid
[2023-11-23 15:29] VITALS: BP 116/83; PULSE 80; RESP 16; TEMP 36.5; O2SAT 97
== END 2023-11-23 15:48 | disposition home or self-care (01) ==
PROVIDERS: Emergency Provider Nurse Practitioner Family; PCP Family Medicine
DX: S16.1XXA Strain of muscle, fascia and tendon at neck level, initial encounter (principal); X58.XXXA Exposure to other specified factors, initial encounter; F84.0 Autistic disorder; N40.0 Benign prostatic hyperplasia without lower urinary tract symptoms; E78.2 Mixed hyperlipidemia; I10 Essential (primary) hypertension
CPT/HCPCS: 99213; G0463

== ENCOUNTER 2023-12-05 08:57 | Emergency (ER) | payer MEDICARE, SELFPAY ==
--- NOTE | 2023-12-05 09:03 | ED.EXTPRO ---
HPI - Extremity Problem General Chief complaint: Extremity Problem,Nontraumatic Stated complaint: L FOOT PAIN Time Seen by Provider: 12/05/23 09:03 Source: patient Mode of arrival: ambulatory Limitations: no limitations History of Present Illness HPI Narrative: Moses is a 53-year-old male patient presenting to the clinic today with complaints of left foot pain since Monday. He reports pain is to the heel and arch of his left foot. Pain is worse in the morning when he is stepping down and bearing. Rates pain 9/10. Pain is improved when not bearing weight. Pain is sharp and tearing. States he was seen a couple years back for symptoms like this and he was diagnosed with gout. Related Data Allergies Allergy/AdvReac Type Severity Reaction Status Date / Time No Known Allergies Allergy Verified 11/23/23 15:27 Review of Systems Review of Systems: Pertinent positives per HPI. Patient denies any fever, chills, rash, headache, visual changes, dizziness, cough, runny nose, sore throat, shortness of breath, chest pain, palpitations, nausea, vomiting, diarrhea, constipation, abdominal pain, or any urinary issues. [facility] Past Medical History Medical History Annual visit for general adult medical examination without abnormal findings Autism BPH (benign prostatic hyperplasia) Combined hyperlipidemia Essential hypertension History of asthma childhood Nocturnal enuresis Surgical History Surgical History History of prostate surgery Hx of foot surgery (~2004) benign tumor removed Family History Family History Grandparent Diabetes mellitus Hypertension Cerebrovascular accident Carcinoma of colon Family history of heart disease in male family member before age 55 Father Family history of cardiovascular disease Family history of type 2 diabetes mellitus Hypertension Family history of heart disease in male family member before age 55 Mother Family history of Parkinson's disease Social History Social History Smoking status: Never smoker Second hand tobacco smoke exposure: No Alcohol intake: current Substance use: never Substance use type: does not use Do You Feel Safe in your Home?: Yes Lack of Transportation: No Lack of Food: Never True Current Housing: I Have Housing Concerned About Future Housing: No Difficulty Paying Gas/Electric Bills: No Difficulty Paying for Meds: No Currently Unemployed: No Education: Associate Degree Difficulty w/ Childcare or Family Care: No Living arrangements: alone Occupation/Education: occupation Gender identity (if verbalized by the patient): Male Agree to blood products: Yes Comments At the time of my signature, I reviewed and agree with the nursing past medical, surgical, social, and family history. There is no relevant family history pertinent to the patient complaint. Exam Narrative: General: Well-developed, well nourished, in no apparent distress Head: Normocephalic, atraumatic. Cardio: Regular rate and rhythm, s1 and s2 normal, no murmur appreciated. Resp: Clear to auscultation bilaterally, no rhonchi, rales, wheezing or rubs. Musculoskeletal: No deformity, tender to palpation over the left heel and over the plantar fascia, pain worsens was stepping down bearing weight, grossly normal range of motion, muscle strength strong and equal, peripheral pulse strong, no edema, no cyanosis, normal gait and station Course Course Emergency Course: Portions of this record may have been created with voice recognition software. Level of Care: Express Care Visit Vital Signs Vital signs: Vital signs reviewed MDM - Extremity (Nontraumatic) MDM Narrative Medical decision making narrative: At the time
[2023-12-05 09:06] VITALS: BP 118/81; PULSE 78; RESP 16; TEMP 36.7; O2SAT 99
== END 2023-12-05 09:19 | disposition home or self-care (01) ==
PROVIDERS: Emergency Provider Nurse Practitioner Family; PCP Family Medicine
DX: M72.2 Plantar fascial fibromatosis (principal); F84.0 Autistic disorder; N40.0 Benign prostatic hyperplasia without lower urinary tract symptoms; E78.2 Mixed hyperlipidemia; I10 Essential (primary) hypertension
CPT/HCPCS: 99213; G0463

== ENCOUNTER 2024-06-25 08:32 | Outpatient (CLI) | payer BC, MEDICARE, SELFPAY ==
--- OUTSIDE RECORDS SUMMARY | 2024-06-25 08:54 | XMS_ITS | Encounter Summary ---
Author Organization [facility] Address [address] [place] [address] Phone Care Team Providers Care Apron Worker Name Role Phone Yelena Lamb MD Primary Care Provider Juan Pearson MD Unavailable [phone] Encounter Details Date Type Department Care Team (Late st Contact Info) Description 03/22/2023 Telephone [facility] [address] [place] [id number] Juan Pearson MD [address] [address] Social History Tobacco Use Types Packs/Day Years Used Date Smoking Tobacco: Never Smokeless Tobacco: Never Alcohol Use Standard Drinks/Week Comments Yes 0 (1 standard drink = 0.6 oz pur e alcohol) Rare Sexually Active Control Partners Comments Not Currently Sex and Gender Information Value Date Recorded Sex Assigned at Not on file Legal Sex Male 11:01 AM CDT Gender Identity Not on file Sexual Orientation Not on file documented as of this encounter Plan of Treatment Not on file documented as of this encounter Visit Diagnoses Not on filedocumented in this encounter Care Teams Apron Worker Relationship Specialty Start Date End Date Yelena Lamb MD [address] [facility] [address] [place], [place] [id number] PCP - General Family Medicine 01/10/23 Juan Pearson MD [address] [place], [address] [address] Consulting Physician Urology 01/10/23 documented as of this encounter
--- OUTSIDE RECORDS SUMMARY | 2024-06-25 08:54 | XMS_ITS | Referral Summary ---
Author Organization [facility] Virtual Care Address [address] [place] [id number] Phone Care Team Providers Care Pasteuriser Operator Name Role Phone Yelena Lamb MD Primary Care Provider Allergies No known active allergies Medications hydroCHLOROthia zide (HYDRODIURIL) 25 mg tablet Take 1 tablet (25 mg total) by mouth daily before breakfast 2 Active potassium chloride ER 10 mEq CR tablet Take 1 tablet/capsule (10 mEq total) by mouth daily before breakfast Active tamsulosin (FLOMAX) 0.4 mg extended release capsule Take 1 capsule (0.4 mg total) by mouth 2 (two) times a day 3 Active metoprolol XL (TOPROL-XL) 50 mg extended release tablet Take 1 tablet (50 mg total) by mouth daily before breakfast 4 Active benazepriL (LOTENSIN) 20 mg tablet Take 1 tablet (20 mg total) by mouth 2 (two) times a day Active Active Problems Problem Noted Date Diagnosed Date Benign prostatic hyperplasia with lower urinary tract symptoms, symptom details unspecified 06/22/2023 Benign prostatic hyperplasia 05/09/2023 Social History Tobacco Use Types Packs/Day Years Used Date Smoking Tobacco: Never Smokeless Tobacco: Never Tobacco Cessation:Counseling Given: Not Answered AUDIT-C Answer Date Recorded Q1: How often do you have a drink containing alc ohol? 2-4 times a month 06/22/2023 Q2: How many drinks containi ng alcohol do you have on a typical day when you are drinking? 1 or 2 06/22/2023 Q3: How often do you have si x or more drinks on one occasion? Never 06/22/2023 Personal Safety Answer Date Recorded Have you ever been in or are you currently in a harmful physical or emotional relationship or is someone making you feel afraid or unsafe? 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 GRINDER Gender Identity Not on file Sexual Orientation Not on file Last Filed Vital Signs Vital Sign Reading Time Taken Comments Blood Pressure 128/72 06/23/2023 7:13 AM CDT Pulse 93 06/23/2023 7:13 AM CDT Temperature 37.2 C (99 F) 06/23/2023 7:13 AM CDT Respiratory Rate 16 06/23/2023 7:13 AM CDT Oxygen Saturation 96% 06/23/2023 7:13 AM CDT Inhaled Oxygen Concentration - - Weight 95.3 kg (210 lb) 06/12/2023 8:55 AM CDT Height 180.3 cm (5' 11 ) 06/12/2023 8:55 AM CDT Body Mass Index 29.29 06/12/2023 8:55 AM CDT Plan of Treatment Not on file Insurance [facility] ACCESS CHOICE ANTHEM ACCESS CHOICE Member Subscriber Plan / Payer (Ef fective 2022-Present) Name:Moses Christensen Relation to Subscriber:Self Name:Moses Christensen Payer ID:[id number] (NAIC) Type:[facility] Address: [address] [place] [id number] [facility] MEDICARE ADVANTAGE Advance Directives For more information, please contact: [phone] * Full Code (Latest Code Status on File) Date Activated Date Inactivated Comments 06/22/2023 12:34 PM 06/23/2023 3:53 PM Care Teams Pasteuriser Operator Relationship Specialty Start Date End Date Yelena Lamb MD [address] [facility] [place] [address] PCP - General Family Practice 01/24/23
--- OUTSIDE RECORDS SUMMARY | 2024-06-25 08:54 | XMS_ITS | Clinical Summary ---
Author Organization 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 Gender Identity Not on file Sexual Orientation Not on file Obstetrics History Last Filed Vital Signs Vital Sign Reading [...] 06/12/2023 8:55 AM CDT Plan of Treatment Health Maintenance Due Date Last Done Comments Colon Cancer Screening-Colonoscopy 1969 Depression Screening 1969 Hepatitis C Screening 1969 Prostate Cancer Screening-PSA 1969 Hepatitis B Screening 1987 Regular Well Visit/Exam 18-64 1987 Zoster Vaccine (2 of 2) 02/11/2023 12/17/2022 Covid-19 Vaccine ( season) 2023 12/17/2022, 12/01/2021, 01/23/2021, Additional history exists Influenza Vaccine (Season Ended) 2024 12/17/2022, 12/01/2021, 12/22/2020, Additional history exists DTaP/Tdap/Td Vaccine (3 - Td or Tdap) 06/27/2027 06/26/2017, 03/06/2016 Pneumococcal vaccine <65 Aged Out No longer eligible based on patient's age to complete this topic Insurance [employer] ACCESS CHOICE Member Subscriber Plan / Payer (Ef fective 2022-Present) Name:[place] Relation to Subscriber:Self Name:Fermin [place] Payer ID:[id number] (NAIC) Type:[employer] Address: [address] MEDICARE ADVANTAGE [facility] MEDICARE Address: [address] [address] [place] [address] Advance Directives For more information, please contact: [phone] * Full Code (Latest Code Status on File) Date Activated Date Inactivated Comments 06/22/2023 12:34 PM 06/23/2023 3:53 PM Care Teams Gymnastics Coach Or Instructor Relationship Specialty Start Date End Date Yelena Lamb MD [facility] [address] [address] PCP - General Family Practice 01/24/23
--- OUTSIDE RECORDS SUMMARY | 2024-06-25 08:54 | XMS_ITS | Clinical Summary ---
Author Organization [facility] Address [address] [place] [address] Phone Care Team Providers Care Purchasing Department Clerk Name Role Phone Yelena Lamb MD Primary Care Provider Juan Pearson MD Unavailable [phone] Allergies No known active allergies Medications tamsulosin (FLOMAX) 0.4 MG Capsule TAKE 1 CAPSULE BY MOUTH TWICE A DAY 11/25/2022 Active potassium chloride CR (KLORCON) 10 MEQ Tablet Controlled Release 12/10/2022 Active benazepril (LOTENSIN) 20 MG Tablet 05/29/2021 Active Immunizations Immunization Administration Dates Next Due Influenza Vaccine, Quadrivalent, PF 12/04,12/01/2021,12/22/2020,2019,12/19/2014 Influenza, Seasonal, Injecta ble, Undefined 12/01/2018,11/20/2017,12/30/2013 TDAP Vaccine 06/26/2017,03/06/2016 Zoster Vaccine Recombinant 12/17/2022 Family History Medical History Relation Name Comments Prostate Cancer Father Colon Cancer Paternal Grandmother Relation Name Status Comments Father Paternal Grandmother Social History Tobacco Use Types Packs/Day Years [...] Sign Reading Time Taken Comments Blood Pressure 150/93 03/31/2023 8:53 AM SCHEDULER MAINTENANCE Pulse 103 03/31/2023 8:53 AM SCHEDULER MAINTENANCE Temperature 36.4 C (97.5 F) 02/21/2023 8:40 AM SCHEDULER MAINTENANCE Respiratory Rate 18 03/31/2023 8:53 AM SCHEDULER MAINTENANCE Oxygen Saturation 99% 03/31/2023 8:53 AM SCHEDULER MAINTENANCE Inhaled Oxygen Concentration - - Weight 98.4 kg (217 lb) 04/18/2023 3:33 PM SCHEDULER MAINTENANCE Height 180.3 cm (5' 11 ) 03/31/2023 8:53 AM SCHEDULER MAINTENANCE Body Mass Index 30.27 03/31/2023 8:53 AM SCHEDULER MAINTENANCE Plan of Treatment Health Maintenance Due Date Last Done Comments Hepatitis C Virus (HCV) Screening 1969 Hepatitis B Immunization (1 of 3 - 19+ 3-dose series) 1988 Colonoscopy 2014 Colorectal Cancer Screening 2014 Cologuard 2019 Immunochemical Fecal Occult Blood 2019 Pneumococcal Immunization (50+ years) (1 of 1 - PCV) 2019 Zoster Immunization (2 of 2) 02/11/2023 12/17/2022 SARS-COV-2 Immunization ( season) 2023 12/17/2022, 12/01/2021, 01/23/2021, Additional history exists PSA Discussion 2024 Influenza Immunization (Season Ended) 2024 12/17/2022, 12/01/2021, 12/22/2020, Additional history exists Td Immunization Every 10 Years (Adults With 1 Tdap) 06/27/2027 06/26/2017, 03/06/2016 Respiratory Syncytial Virus (RSV) Immunization (Adult) (1 - 1-dose 75+ series) 2044 DTaP/Tdap/Td Immunization Discontinued 06/26/2017, 03/2016 Meningococcal Immunization (ACWY) Aged Out No longer eligible based on patient's age to complete this topic Rotavirus Immunization Aged Out No lo nger eligible based on patient's age to complete this topic Insurance [facility] Care Teams Purchasing Department Clerk Relationship Specialty Start Date End Date Yelena Lamb MD [address] [place] [address] [address] [place] [address] PCP - General Family Medicine 01/10/23 Juan Pearson MD [address] [address] Consulting Physician Urology 01/10/23
[2024-06-25 11:05] LABS: Basophils Percent Auto 0.5 % (0.2-1.2); Eosinophils Absolute Auto 0.2 K/mm3 (0-0.3); Eosinophils Percent Auto 2.3 % (0-4.4); Hematocrit 43.9 % (42.0-52.0); Hemoglobin 14.4 g/dL (14.0-18.0); Immature Granulocyte Absolute 0.05 K/mm3 (0.00-0.031); Immature Granulocyte Percent A 0.6 % (0-0.5); Lymphocytes Absolute Auto 2.01 K/mm3 (0.9-3.2); Lymphocytes Percent Auto 25.2 % (18.3-44.2); Mean Corpuscular HGB Conc 32.8 g/dl (32-36); Mean Corpuscular Hemoglobin 27.2 pg (26-34); Mean Corpuscular Volume 82.8 fl (80-100); Mean Platelet Volume 11.7 fl (7.4-10.4); Monocytes Absolute Auto 0.8 K/mm3 (0.1-0.6); Neutrophils Absolute Auto 4.9 K/mm3 (1.3-6.7); Neutrophils Percent Auto 61.4 % (45.5-73.1); Platelet Count Result 234 k/mm3 (150-375); Red Cell Distribution Width 13.5 % (11.5-14.5)
[2024-06-25 11:16] LABS: Cholesterol 211 mg/dL (0-200); HDL Direct 37 mg/dL; Triglycerides 94 mg/dL (<150)
[2024-06-25 11:26] LABS: LDL Cholesterol Direct 125 mg/dL
[2024-06-25 11:47] LABS: Prostate Specific Antigen 1.3 ng/mL (< OR = 4.0)
[2024-06-25 12:12] LABS: Vitamin D 25 Hydroxy 29.3 ng/mL
== END 2024-06-25 08:33 | disposition home or self-care (01) ==
PROVIDERS: PCP Family Medicine; Visit Provider Nurse Practitioner Family
DX: I10 Essential (primary) hypertension (principal); E78.2 Mixed hyperlipidemia; E55.9 Vitamin D deficiency, unspecified; Z12.5 Encounter for screening for malignant neoplasm of prostate; Z00.00 Encounter for general adult medical examination without abnormal findings
CPT/HCPCS: 36415; 80061; 82306; 84153; 84443; 85025; G0103

== ENCOUNTER 2024-11-25 15:45 | Emergency (ER) | payer BC, MEDICARE, SELFPAY ==
--- NOTE | ~2024-11-25 | XR_ITS ---
EXAMINATION: XR ankle LT min 3V DATE: 11/25/2024 16:18 INDICATION: Pain TECHNIQUE: 4 images of the left ankle were obtained COMPARISON: None. FINDINGS: Mild joint space narrowing about the medial compartment. Small plantar and posterior calcaneal spur. [ No radiographic evidence for an acute fracture or dislocation.] [ No radiopaque foreign body.] [ No sclerotic or destructive bone lesions.] Soft tissue swelling about the left ankle. IMPRESSION: 1. [ No acute bony abnormality identified.] If symptoms persist or worsen consider a short-term follow-up study or MRI imaging for further assessment. Reviewed, dictated and finalized at location Q. IMPRESSION: 1. [ No acute bony abnormality identified.] If symptoms persist or worsen consider a short-term follow-up study or MRI imag ing for further assessment.
--- NOTE | 2024-11-25 15:49 | ED_ITS ---
HPI - Extremity Injury (Lower) General Chief Complaint: Extremity Problem,Nontraumatic Stated Complaint: Swollen L Foot Time Seen by Provider: 11/25/24 16:02 Source: patient, RN notes reviewed and old records reviewed Mode of arrival: ambulatory Limitations: no limitations History of Present Illness HPI Narrative: 54-year-old male presents to the [facility] with left medial ankle and heel pain, swelling. States that started yesterday. Denies any injury. Patient with a history of autism, presents by himself. No treatment prior to arrival Onset (ago): day(s) (1) Related Data Allergies Allergy/AdvReac Type Severity Reaction Status Date / Time No Known Allergies Allergy Verified 11/25/24 15:54 Review of Systems 2 Review of Systems: All systems reviewed & are unremarkable except as noted in HPI and below Constitutional: Constitutional: Reports no additional constitutional complaints ENT: Reports system reviewed and no additional complaints, except as documented Cardiovascular: Cardiovascular: Reports no additional cardiovascular complaints, Denies chest pain and Denies dyspnea Respiratory: Respiratory: Reports no additional respiratory complaints, Denies chest congestion, Denies cough and Denies dyspnea Musculoskeletal: Musculoskeletal: Reports as per HPI Integumentary/Breasts: Skin/Breast: Reports system reviewed and no additional complaints, except as docu PMFSH Past Medical History Medical History Vitamin D deficiency BPH (benign prostatic hyperplasia) Nocturnal enuresis Autism History of asthma childhood Combined hyperlipidemia Essential hypertension Surgical History Surgical History History of prostate surgery Hx of foot surgery (~2004) benign tumor removed Family History Family History Grandparent Diabetes mellitus Hypertension Cerebrovascular accident Carcinoma of colon Family history of heart disease in male family member before age 55 Father Family history of cardiovascular disease Family history of type 2 diabetes mellitus Hypertension Family history of heart disease in male family member before age 55 Mother Family history of Parkinson's disease Social History Social History Social History: Moses lives alone, he works at [employer], [employer] and [employer]. He lives alone, drives his own car and he has friends that live nearby. He enjoys playing video games and riding his bike. Smoking status: Never smoker Second hand tobacco smoke exposure: No Alcohol intake: current Substance use: never Substance use type: does not use Do You Feel Safe in your Home?: Yes Lack of Transportation: No Lack of Food: Never True Current Housing: I Have Housing Concerned About Future Housing: No Difficulty Paying Gas/Electric Bills: No Difficulty Paying for Meds: No Currently Unemployed: No Education: Associate Degree Difficulty w/ Childcare or Family Care: No Living arrangements: alone Occupation/Education: occupation Gender identity (if verbalized by the patient): Male Agree to blood products: Yes Comments At the time of my signature, I reviewed and agree with the nursing past medical, surgical, social, and family history. There is no relevant family history pertinent to the patient complaint. Exam 2 Const: General: cooperative, healthy appearing, comfortable, no acute distress, well developed, alert and well nourished Nutritional Appearance: w ell nourished Orientation/consciousness: patient oriented x3 Limitations: no limitations HENMT: Head: normal to inspection Eyes: General: appearance normal, both eyes and all related structures A lignment and Position: alignment normal Neck: Neck: normal visual inspection, full ROM, no lymphadenopathy and no meningeal signs Chest: Chest palpation & inspection: normal inspection of the chest Resp: Effort & Inspection: normal respiratory effort and able to speak in complete sentences Cardio: Rate: regular rate Skin: General skin exam: normal color and no rashes or lesions noted Neuro: General: patient oriented x3, gait normal, moves all extremities and no meningeal signs Cognition (Neuro): normal cognition Speech: normal speech Gait exam (Neuro): Normal gait present Extrem: General: normal to inspection, full ROM, capillary refill normal and normal gait Left lower extremity: ankle Details: tenderness, swelling (Medial) and normal ROM and foot Details: normal capillary refill, toes with normal ROM and vascular exam Details: dorsalis pedis pulse present and normal capillary refill Ankle/foot/toe images: 1. Tenderness and swelling. Psych: Appearance: grossly normal and well kempt Mental Status: mental status grossly normal Speech and movement: Normal speech and movement present and Clear speech present Affect: normal affect Attitude: cooperative Course Course Level of Care: Express Care Visit Vital Signs Vital signs: Vital Signs Temperature 97.2 F L 11/25/24 15:52 Pulse Rate 116 H 11/25/24 15:52 Respiratory Rate 16 11/25/24 15:52 Blood Pressure 130/86 11/25/24 15:52 Pulse Oximetry 96 11/25/24 15:52 Oxygen Delivery Room Air 11/25/24 15:52 Temperature 97.2 F L 11/25/24 15:52 Pulse Rate 116 H 11/25/24 15:52 Respiratory Rate 16 11/25/24 15:52 Blood Pressure 130/86 11/25/24 15:52 Pulse Oximetry 96 11/25/24 15:52 Oxygen Delivery Room Air 11/25/24 15:52 Reviewed MDM - Extremity Injury (Lower) MDM Narrative Medical decision making narrative: Patient sitting in exam room. Patient is nontoxic, vitals stable. Patient presents with 1 day history of left medial ankle and heel swelling, pain. X-ray is negative. Concern for gouty arthritis, will cover with indomethacin. Patient is appropriate for outpatient treatment with close follow-up Discharge instructions reviewed with patient, as well as provided in writing per nursing staff. The instructions also include specific and strict return/GO TO THE ER as well as f/u information. All questions have been answered, and the patient deny any further questions with discharge and discharge plan. Some parts of this dictation were generated by voice recognition software and may contain typographical and/or grammatical inaccuracies. Differential Diagnosis Differential diagnosis: Likely ankle sprain and strain and other (Gout, fracture) Imaging Data Radiologist's impression: EXAMINATION: XR ankle LT min 3V DATE: 11/25/2024 16:18 INDICATION: Pain TECHNIQUE: 4 images of the left ankle were obtained COMPARISON: None. FINDINGS: Mild joint space narrowing about the medial compartment. Small plantar and posterior calcaneal spur. [ No radiographic evidence for an acute fracture or dislocation.] [ No radiopaque foreign body.] [ No sclerotic or destructive bone lesions.] Soft tissue swelling about the left ankle. IMPRESSION: 1. [ No acute bony abnormality identified.] If symptoms persist or worsen consider a short-term follow-up study or MRI imaging for further assessment. Critical Care Time Critical Care Time Critical Care Time: No Discharge Plan Discharge Clinical Impression: Pain and swelling of left ankle Patient Disposition: Home Condition: Stable Instructions: Gout (ED) Additional Instructions: Your Xray did not show a fracture. Wear good supportive shoes at all times. Ice should be applied to help reduce swelling. It can be used for 20 to 30 minutes, every 2-3 hours while awake. Do not apply ice directly to your skin. Take the indomethacin twice a day for 7 days Please schedule a follow-up visit with your personal physician for further evaluation and treatment within 2 weeks especially if symptoms persist. For new or worsening symptoms go directly to the emergency room Patient Language: [place] Citizen Prescriptions: New indomethacin 50 mg capsule 50 mg PO BID Qty: 14 0RF Rx Instructions: administer with food or milk No Action metoprolol succinate 50 mg tablet extended release 24 hr 50 mg PO DAILY Qty: 90 1RF hydrochlorothiazide 25 mg tablet 25 mg PO DAILY Qty: 90 1RF benazepril 20 mg tablet 20 mg PO BID Qty: 180 1RF potassium chloride [Klor-Con 10] 10 mEq tablet extended release 10 meq PO DAILY Qty: 90 1RF Follow-up/Referrals: Nasir Lamb MD [Primary Care Provider, Family Practice] - 1 Week Stand Alone Forms: Work/School Release IP Time of Disposition: 16:48
[2024-11-25 15:52] VITALS: BP 130/86; PULSE 116; RESP 16; TEMP 36.2; O2SAT 96
== END 2024-11-25 16:55 | disposition home or self-care (01) ==
PROVIDERS: Emergency Provider Nurse Practitioner; PCP Family Medicine
DX: M25.572 Pain in left ankle and joints of left foot (principal); M25.472 Effusion, left ankle; F84.0 Autistic disorder; N40.0 Benign prostatic hyperplasia without lower urinary tract symptoms; I10 Essential (primary) hypertension; E78.2 Mixed hyperlipidemia
CPT/HCPCS: 73610; 99213; G0463

== ENCOUNTER 2024-12-23 16:11 | Outpatient (CLI) | payer BC, MEDICARE, SELFPAY ==
--- OUTSIDE RECORDS SUMMARY | 2024-12-23 18:37 | XMS_ITS | Encounter Summary ---
Author Organization [facility] Address [address] [place] [address] Phone Care Team Providers Care Sharepoint Application Developer Name Role Phone Yelena Lamb MD Primary Care Provider Juan Pearson MD Unavailable [phone] Encounter Details Date Type Department Care Team (Late st Contact Info) Description 03/22/2023 Telephone [facility] [address] [place] [id number] Juan Pearson MD [address] [address] Social History Tobacco Use Types Packs/Day Years [...] on filedocumented in this encounter Care Teams Sharepoint Application Developer Relationship Specialty Start Date End Date Yelena Lamb MD [address] [facility] [address] [place] [address] PCP - General Family Medicine 01/10/23 Juan Pearson MD [address] [facility] [place], [address] [address] Consulting Physician Urology 01/10/23 documented as of this encounter
--- OUTSIDE RECORDS SUMMARY | 2024-12-23 18:38 | XMS_ITS | Clinical Summary ---
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 Gender Identity Not on file Sexual Orientation [...] 8:55 AM CDT Height 180.3 cm (5' 11) 06/12/2023 8:55 AM CDT Body Mass Index 29.29 06/12/2023 8:55 AM CDT Plan of Treatment Health Maintenance Due Date Last Done Comments Colon Cancer Screening-Colonoscopy 1969 Depression Screening 1969 Hepatitis C Screening 1969 Prostate Cancer Screening-PSA 1969 Hepatitis B Screening 1987 Regular Well Visit/Exam 18-64 1987 Zoster Vaccine (2 of 2) 02/11/2023 12/17/2022 Covid-19 Vaccine ( season) 2024 12/17/2022, 12/01/2021, 01/23/2021, Additional history exists Influenza Vaccine (#1) 2024 , 12/01/2021, 12/22/2020, Additional history exists DTaP/Tdap/Td Vaccine (3 - Td or Tdap) 06/27/2027 06/26/2017, 03/06/2016 Pneumococcal vaccine <65 Aged Out No longer eligible based on patient's age to complete this topic Insurance [employer] ACCESS CHOICE Member Subscriber Plan / Payer (Ef fective 2022-Present) Name:[place] Relation to Subscriber:Self Name:Fermin [place] Payer ID:[id number] (NAIC) Type:[employer] Address: [address] MEDICARE ADVANTAGE Advance Directives For more information, please contact: [phone] * Full Code (Latest Code Status on File) Date Activated Date Inactivated Comments 06/22/2023 12:34 PM 06/23/2023 3:53 PM Care Teams Wall Washer Relationship Specialty Start Date End Date Yelena Lamb MD [facility] [address] [address] PCP - General Family Practice 01/24/23
--- OUTSIDE RECORDS SUMMARY | 2024-12-23 18:38 | XMS_ITS | Clinical Summary ---
Author Organization [facility] Address [address] [place] [address] Phone Care Team Providers Care Data Services Developer Name Role Phone Yelena Lamb MD Primary Care Provider Juan Pearson MD Unavailable [phone] Allergies No known active allergies Medications tamsulosin [...] Comments Blood Pressure 150/93 03/31/2023 8:53 AM X RAY TECHNICIAN Pulse 103 03/31/2023 8:53 AM X RAY TECHNICIAN Temperature 36.4 C (97.5 F) 02/21/2023 8:40 AM X RAY TECHNICIAN Respiratory Rate 18 03/31/2023 8:53 AM X RAY TECHNICIAN Oxygen Saturation 99% 03/31/2023 8:53 AM X RAY TECHNICIAN Inhaled Oxygen Concentration - - Weight 98.4 kg (217 lb) 04/18/2023 3:33 PM X RAY TECHNICIAN Height 180.3 cm (5' 11) 03/31/2023 8:53 AM X RAY TECHNICIAN Body Mass Index 30.27 03/31/2023 8:53 AM X RAY TECHNICIAN Plan of Treatment Health Maintenance Due Date Last Done Comments Hepatitis C Virus (HCV) Screening 1969 Hepatitis B Immunization (1 of 3 - 19+ 3-dose series) 1988 Cologuard 2014 Colonoscopy 2014 Colorectal Cancer Screening 2014 Immunochemical Fecal Occult Blood 2014 Pneumococcal Immunization (50+ years) (1 of 1 - PCV) 2019 Zoster Immunization (2 of 2) 02/11/2023 12/17/2022 PSA Discussion 2024 Influenza Immunization (#1) 11/04/202412/04, 12/01/2021, 12/22/2020, Additional history exists SARS-COV-2 Immunization ( season) 2024 12/17/2022, 12/01/2021, 01/23/2021, Additional history exists Td Immunization Every 10 Years (Adults With 1 Tdap) 06/27/2027 06/26/2017, 03/06/2016 Respiratory Syncytial Virus (RSV) Immunization (Adult) (1 - 1-dose 75+ series) 2044 DTaP/Tdap/Td Immunization Discontinued 06/26/2017, 03/2016 Human Papillomavirus (HPV) Immunization Aged Out No longer eligible based on patient's age to complete this topic Meningococcal Immunization (ACWY) Aged Out No longer eligible based on patient's age to complete this topic Rotavirus Immunization Aged Out No lo nger eligible based on patient's age to complete this topic Insurance [facility] Care Teams Data Services Developer Relationship Specialty Start Date End Date Yelena Lamb MD [address] [place] [address] [address] [place] [address] PCP - General Family Medicine 01/10/23 Juan Pearson MD [address] [address] Consulting Physician Urology 01/10/23
[2024-12-23 19:14] LABS: Hematocrit 41.4 % (42.0-52.0); Hemoglobin 13.9 g/dL (14.0-18.0); Immature Granulocyte Percent A 0.2 % (0-0.5); Lymphocytes Absolute Auto 1.85 K/mm3 (0.9-3.2); Mean Corpuscular HGB Conc 33.6 g/dl (32-36); Mean Corpuscular Hemoglobin 26.9 pg (26-34); Mean Corpuscular Volume 80.2 fl (80-100); Nucleated Red Blood Cells Absolute Auto 0.000 K/mm3 (0.0-0.012); Nucleated Red Blood Cells Perc 0.0 % (0.0-0.2); Platelet Count Result 216 k/mm3 (150-375); Red Blood Count 5.16 M/mm3 (4.6-6.20); White Blood Count 8.6 K/mm3 (4.5-10.0)
[2024-12-23 19:31] LABS: Alanine Aminotransferase 17 U/L (6-50); Albumin Level 4.3 g/dL (3.5-5.1); Alkaline Phosphatase 77 U/L (38-126); Anion Gap 7 mmol/L (4-12); Aspartate Amino Transferase 27 U/L (17-59); Bilirubin,Total 1.1 mg/dL (0.2-1.3); Blood Urea Nitrogen 14 mg/dL (9-20); Calcium 9.1 mg/dL (8.4-10.2); Carbon Dioxide 28 mmol/L (22-30); Chloride 101 mmol/L (98-107); Cholesterol 197 mg/dL (0-200); Estimated Glomerular Filt Rate > 60; Glucose 114 mg/dL (65-110); HDL Direct 36 mg/dL; Potassium 3.8 mmol/L (3.4-5.0); Sodium 136 mmol/L (137-145); Total Protein 7.6 g/dL (6.3-8.2); Triglycerides 207 mg/dL (<150)
== END 2024-12-23 16:12 | disposition home or self-care (01) ==
LOC: ANHGOSHLAB 16:13
PROVIDERS: PCP Family Medicine; Visit Provider Nurse Practitioner Family
DX: E78.5 Hyperlipidemia, unspecified (principal); I10 Essential (primary) hypertension; E55.9 Vitamin D deficiency, unspecified
CPT/HCPCS: 36415; 80053; 80061; 82306; 85025

== ENCOUNTER 2024-12-29 20:26 | Emergency (ER) | payer BC, MEDICARE, SELFPAY ==
--- NOTE | ~2024-12-29 | XR_ITS ---
[[id number] ] INDICATION: Status post fall. Rib pain. TECHNIQUE: Frontal projection of the upper right ribs, frontal projection of the lower right ribs, oblique projection of all the right ribs, frontal inspiratory chest x-ray for interpretation. FINDINGS: There are no displaced rib fractures identified. There are no soft tissue abnormality seen. There is perihilar infiltrates, suspicious for bronchiolitis. No peripheral consolidation, edema or effusion. IMPRESSION: 1:No acute displaced rib fractures. 2:Perihilar interstitial infiltrates suspicious for bronchiolitis. Reviewed, dictated and finalized at location B.
[2024-12-29 20:29] VITALS: BP 135/77; PULSE 65; RESP 18; TEMP 36.5; O2SAT 100
--- OUTSIDE RECORDS SUMMARY | 2024-12-29 20:29 | XMS_ITS | Clinical Summary ---
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 Gender Identity Not on file Sexual Orientation [...] patient's age to complete this topic Insurance [employer] ACCESS CHOICE Member Subscriber Plan / Payer (Ef fective 2022-Present) Name:[place] Relation to Subscriber:Self Name:Fermin [place] Payer ID:[id number] (NAIC) Type:[employer] Address: [address] MEDICARE ADVANTAGE [facility] MEDICARE Address: [address] [address] [place] [address] Advance Directives For more information, please contact: [phone] * Full Code (Latest Code Status on File) Date Activated Date Inactivated Comments 06/22/2023 12:34 PM 06/23/2023 3:53 PM Care Teams Government Affairs Fellow Relationship Specialty Start Date End Date Yelena Lamb MD [facility] [address] [address] PCP - General Family Practice 01/24/23
--- OUTSIDE RECORDS SUMMARY | 2024-12-29 20:29 | XMS_ITS | Clinical Summary ---
Author Organization [facility] Address [address] [place] [address] Phone Care Team Providers Care Director Of Rehabilitation Name Role Phone Yelena Lamb MD Primary Care Provider Juan Pearson MD Unavailable [phone] Allergies No known active allergies Medications tamsulosin [...] Comments Blood Pressure 150/93 03/31/2023 8:53 AM LEAD GENERATION REPRESENTATIVE Pulse 103 03/31/2023 8:53 AM LEAD GENERATION REPRESENTATIVE Temperature 36.4 C (97.5 F) 02/21/2023 8:40 AM LEAD GENERATION REPRESENTATIVE Respiratory Rate 18 03/31/2023 8:53 AM LEAD GENERATION REPRESENTATIVE Oxygen Saturation 99% 03/31/2023 8:53 AM LEAD GENERATION REPRESENTATIVE Inhaled Oxygen Concentration - - Weight 98.4 kg (217 lb) 04/18/2023 3:33 PM LEAD GENERATION REPRESENTATIVE Height 180.3 cm (5' 11) 03/31/2023 8:53 AM LEAD GENERATION REPRESENTATIVE Body Mass Index 30.27 03/31/2023 8:53 AM LEAD GENERATION REPRESENTATIVE Plan of Treatment Health Maintenance Due Date [...] patient's age to complete this topic Insurance [facility] Care Teams Director Of Rehabilitation Relationship Specialty Start Date End Date Yelena Lamb MD [address] [place] [address] [address] [place] [address] PCP - General Family Medicine 01/10/23 Juan Pearson MD [address] [address] Consulting Physician Urology 01/10/23
--- OUTSIDE RECORDS SUMMARY | 2024-12-29 21:07 | XMS_ITS | Clinical Summary ---
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 Gender Identity Not on file Sexual Orientation [...] patient's age to complete this topic Insurance * Guarantor: Fermin [place] Account Type Relation to Patient Date of Phone Billing Address Personal/Family Self [address] [place] [id number] [employer] ACCESS CHOICE [employer] ACCESS CHOICE Member Subscriber Plan / Payer (Ef fective 2022-Present) Name:[place]ermin[place] Relation to Subscriber:Self Name:Fermin [place] Payer ID:[id number] (NAIC) Type:[employer] Address: [address] MEDICARE ADVANTAGE Advance Directives For more information, please contact: [phone] * Full Code (Latest Code Status on File) Date Activated Date Inactivated Comments 06/22/2023 12:34 PM 06/23/2023 3:53 PM Care Teams Steward/Stewardess Dining Room Relationship Specialty Start Date End Date Yelena Lamb MD [facility] [address] [address] PCP - General Family Practice 01/24/23
--- OUTSIDE RECORDS SUMMARY | 2024-12-29 21:07 | XMS_ITS | Encounter Summary ---
Author Organization [facility] Address [address] [place] [address] Phone Care Team Providers Care Avionics System Engineer Name Role Phone Yelena Lamb MD Primary Care Provider Juan Pearson MD Unavailable [phone] Encounter Details Date Type Department Care Team (Late st Contact Info) Description 03/22/2023 Telephone [facility] [address] [place] [id number] Juan Pearson MD [address] [address] Social History Tobacco Use Types Packs/Day Years [...] on filedocumented in this encounter Care Teams Avionics System Engineer Relationship Specialty Start Date End Date Yelena Lamb MD [address] [facility] [address] [place] [address] PCP - General Family Medicine 01/10/23 Juan Pearson MD [address] [place], [address] [address] Consulting Physician Urology 01/10/23 documented as of this encounter
--- OUTSIDE RECORDS SUMMARY | 2024-12-29 21:07 | XMS_ITS | Clinical Summary ---
Author Organization 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 Pulse 103 03/31/2023 8:53 AM SLITTER CUT OFF OPERATOR Temperature 36.4 C (97.5 F) 02/21/2023 8:40 AM SLITTER CUT OFF OPERATOR Respiratory Rate 18 03/31/2023 8:53 AM SLITTER CUT OFF OPERATOR Oxygen Saturation 99% 03/31/2023 8:53 AM SLITTER CUT OFF OPERATOR Inhaled Oxygen Concentration - - Weight 98.4 kg (217 lb) 04/18/2023 3:33 PM SLITTER CUT OFF OPERATOR Height 180.3 cm (5' 11) 03/31/2023 8:53 AM SLITTER CUT OFF OPERATOR Body Mass Index 30.27 03/31/2023 8:53 AM SLITTER CUT OFF OPERATOR Plan of Treatment Health Maintenance Due Date [...] patient's age to complete this topic Insurance [facility] Care Teams Tent Assembler Relationship Specialty Start Date End Date Yelena Lamb MD [address] [place] [address] [address] [place] [address] PCP - General Family Medicine 01/10/23 Juan Pearson MD #[address] [address] Consulting Physician Urology 01/10/23
--- NOTE | 2024-12-29 21:31 | ED_ITS ---
HPI - Fall General Chief Complaint: Fall Stated Complaint: GLF, R side rib pain worsening with breathing Time Seen by Provider: 12/29/24 20:57 History of Present Illness HPI Narrative: This is a 54-year-old male with history of hypertension, hyperlipidemia, autism who presents the ED for a fall. Patient states that he was walking around when he slipped on a rock garden and fell onto his right ribs. Denies hitting his head, loss consciousness. He reports right lateral rib pain at this time worse with deep inspirations. Related Data Allergies Allergy/AdvReac Type Severity Reaction Status Date / Time No Known Allergies Allergy Verified 11/25/24 15:54 Review of Systems Review of Systems: Gen.: Denies fevers or chills Eyes: Denies eye pain or visual change ENT: Denies congestion Respiratory: Denies shortness of breath or cough CV: As per HPI GI: Denies abdominal pain nausea, emesis or diarrhea denies burning, urgency, frequency or hematuria Musculoskeletal: Denies back pain or muscle pain Neuro: Denies numbness, tingling, weakness or focal weakness Skin: Denies rash Except as documented, all other systems reviewed and negative COUNT INCLUDES THE [facility] Past Medical History Medical History Vitamin D deficiency BPH (benign prostatic hyperplasia) Nocturnal enuresis Autism History of asthma childhood Combined hyperlipidemia Essential hypertension Surgical History Surgical History History of prostate surgery Hx of foot surgery (~2004) benign tumor removed Family History Family History Grandparent Diabetes mellitus Hypertension Cerebrovascular accident Carcinoma of colon Family history of heart disease in male family member before age 55 Father Family history of cardiovascular disease Family history of type 2 diabetes mellitus Hypertension Family history of heart disease in male family member before age 55 Mother Family history of Parkinson's disease Social History Social History Social History: Moses lives alone, he works at [employer], [employer] and [employer]. He lives alone, drives his own car and he has friends that live nearby. He enjoys playing video games and riding his bike. Smoking status: Never smoker Second hand tobacco smoke exposure: No Alcohol intake: current Substance use: never Substance use type: does not use Do You Feel Safe in your Home?: Yes Lack of Transportation: No Lack of Food: Never True Current Housing: I Have Housing Concerned About Future Housing: No Difficulty Paying Gas/Electric Bills: No Difficulty Paying for Meds: No Currently Unemployed: No Education: Associate Degree Difficulty w/ Childcare or Family Care: No Living arrangements: alone Occupation/Education: occupation Gender identity (if verbalized by the patient): Male Agree to blood products: Yes Exam Narrative: APPEARANCE: No acute distress, nontoxic, resting in bed EYES: EOMI HEENT: Normocephalic, atraumatic, OMM RESPIRATORY: No respiratory distress Clear to auscultation bilaterally with no rhonchi wheezing or rales. CARDIOVASCULAR: Regular rate and rhythm without murmurs rubs or gallops. Tenderness palpation over the right lateral lower chest wall with no crepitus. ABDOMINAL: Soft, nontender, nondistended, no rebound or guarding MUSCULOSKELETAl: Moves all extremities. No clubbing, cyanosis or edema. NEURO: Awake and alert. Following commands, speech normal, no focal deficits SKIN:: Warm, dry. No rashes lesions or abrasions PSYCHIATRIC: Normal affect/mood, Course Vital Signs Vital signs: Vital Signs Temperature 97.7 F 12/29/24 20:29 Pulse Rate 65 12/29/24 20:29 Respiratory Rate 18 12/29/24 20:29 Blood Pressure 135/77 12/29/24 20:29 Pulse Oximetry 100 12/29/24 20:29 Oxygen Delivery Room Air 12/29/24 20:29 Temperature 97.7 F 12/29/24 20:29 Pulse Rate 67 12/29/24 23:03 Respiratory Rate 18 12/29/24 23:03 Blood Pressure 137/62 12/29/24 23:03 Pulse Oximetry 97 12/29/24 23:03 Oxygen Delivery Room Air 12/29/24 20:29 MDM - Fall MDM Narrative Medical decision making narrative: 54-year-old male Presenting for fall with right rib pain. On initial evaluation patient was in no acute distress afebrile, hemodynamic stable. Notable exam findings: Tenderness over the right lateral ribs without crepitus Notable imaging findings: No rib fractures identified Patient was given Toradol with improvement of his pain. He was given an incentive spirometer. He was educated on using the incentive spirometer. He was advised follow-up with his PCP next week for re-evaluation. Patient was agreeable to this plan. Given strict return precautions. Differential Diagnosis Differential diagnosis: Likely other (rib fracture, rib contusion, pulmonary contusion) Medical Records Attestation: I reviewed the patient's medical records. Imaging Data Attestation: I personally reviewed and interpreted this imaging study as follows: My impression: Chest x-ray with rib series: Normal cardiac silhouette, no consolidations, no pleural effusions, no pulmonary vascular congestion. No rib fractures identified Discharge Plan Discharge Clinical Impression: Fall, Contusion of rib on right side Patient Disposition: Home Condition: Stable Instructions: Antibiotic Form, How to Use an Incentive Spirometer (ED), Rib Contusion (ED) Additional Instructions: X-rays did not reveal any fractures. He will likely have a bruised rib. Use the incentive spirometer as instructed. You may take Tylenol and ibuprofen for your pain. Follow-up with her PCP in the next week for re-evaluation. Return to the ED for any new or worsening symptoms. For pain, discomfort or temperature greater than or equal to 100.8 ?F please alternate the following 2 medications as needed. First medication- acetaminophen/Tylenol- 1000mg every 6-8 hours as needed for above indications. Second medication- ibuprofen/Motrin-600mg every 6-8 hours as needed for above indication. Patient Language: Kyrgyz Prescriptions: No Action indomethacin 50 mg capsule 50 mg PO BID Qty: 14 0RF Rx Instructions: administer with food or milk metoprolol succinate 50 mg tablet extended release 24 hr 50 mg PO DAILY Qty: 90 1RF hydrochlorothiazide 25 mg tablet 25 mg PO DAILY Qty: 90 1RF benazepril 20 mg tablet 20 mg PO BID Qty: 180 1RF potassium chloride [Klor-Con 10] 10 mEq tablet extended release 10 meq PO DAILY Qty: 90 1RF Follow-up/Referrals: Nasir Lamb MD [Primary Care Provider, Family Practice]
[2024-12-29] MEDS: KETOROLAC 30 MG/ML VIAL (*BKC) IM (21:41)
[2024-12-29 23:03] VITALS: BP 137/62; PULSE 67; RESP 18; O2SAT 97
== END 2024-12-29 23:05 | disposition home or self-care (01) ==
PROVIDERS: Emergency Provider Student in an Organized Health Care Education/Training Program; PCP Family Medicine
DX: S20.211A Contusion of right front wall of thorax, initial encounter (principal); N40.0 Benign prostatic hyperplasia without lower urinary tract symptoms; E78.5 Hyperlipidemia, unspecified; I10 Essential (primary) hypertension
CPT/HCPCS: 71101; 96372; 99283; J1885

== ENCOUNTER 2025-01-15 00:04 | Day surgery (SDC) | payer MEDICARE, SELFPAY ==
[2025-01-07 10:26] VITALS: BMI 32.1
--- OUTSIDE RECORDS SUMMARY | 2025-01-15 00:07 | XMS_ITS | Clinical Summary ---
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 Gender Identity Not on file Sexual [...] patient's age to complete this topic Insurance [employer] ACCESS CHOICE Member Subscriber Plan / Payer (Ef fective 2022-Present) Name:FerminMoses Relation to Subscriber:Self Name:FerminMoses Payer ID:[id number] (NAIC) Type:[employer] Address: [address] MEDICARE ADVANTAGE Advance Directives For more information, please contact: [phone] * Full Code (Latest Code Status on File) Date Activated Date Inactivated Comments 06/22/2023 12:34 PM 06/23/2023 3:53 PM Care Teams Model Maker Apprentice Relationship Specialty Start Date End Date Yelena Lamb MD [address] [facility] [address] [id number] PCP - General Family Practice 01/24/23
--- OUTSIDE RECORDS SUMMARY | 2025-01-15 00:07 | XMS_ITS | Clinical Summary ---
Author Organization [facility] Address [address] [place] [address] Phone Care Team Providers Care Concrete Building Assembler Name Role Phone Yelena Lamb MD Primary Care Provider Juan Pearson MD Unavailable [phone] Allergies No known active allergies Medications tamsulosin [...] Comments Blood Pressure 150/93 03/31/2023 8:53 AM PLAN CHECKER Pulse 103 03/31/2023 8:53 AM PLAN CHECKER Temperature 36.4 C (97.5 F) 02/21/2023 8:40 AM PLAN CHECKER Respiratory Rate 18 03/31/2023 8:53 AM PLAN CHECKER Oxygen Saturation 99% 03/31/2023 8:53 AM PLAN CHECKER Inhaled Oxygen Concentration - - Weight 98.4 kg (217 lb) 04/18/2023 3:33 PM PLAN CHECKER Height 180.3 cm (5' 11) 03/31/2023 8:53 AM PLAN CHECKER Body Mass Index 30.27 03/31/2023 8:53 AM PLAN CHECKER Plan of Treatment Health Maintenance Due Date [...] patient's age to complete this topic Insurance [facility] Care Teams Concrete Building Assembler Relationship Specialty Start Date End Date Yelena Lamb MD [address] [place] [address] [address] [place] [address] PCP - General Family Medicine 01/10/23 Juan Pearson MD #[address] [address] Consulting Physician Urology 01/10/23
--- OUTSIDE RECORDS SUMMARY | 2025-01-15 00:07 | XMS_ITS | Encounter Summary ---
Author Organization [facility] Address [address] [place] [address] Phone Care Team Providers Care Lone Lead Lineman Name Role Phone Yelena Lamb MD Primary Care Provider Juan Pearson MD Unavailable [phone] Encounter Details Date Type Department Care Team (Late st Contact Info) Description 03/22/2023 Telephone [facility] [address] [place] [address] Juan Pearson MD [id number] [address] Social History Tobacco Use Types Packs/Day Years [...] on filedocumented in this encounter Care Teams Lone Lead Lineman Relationship Specialty Start Date End Date Yelena Lamb MD [address] [facility] [address] [place] [address] PCP - General Family Medicine 01/10/23 Juan Pearson MD [address] [place], [facility] [address] [place] [address] Consulting Physician Urology 01/10/23 documented as of this encounter
[2025-01-15 11:40] VITALS: BP 106/80; PULSE 106; RESP 18; TEMP 36.8; O2SAT 96
--- NOTE | 2025-01-15 11:59 | P.PNAN_ITS ---
Anes - Initial Pre Proc Eval Procedure: Operation Date: 01/15/25 13:00 Proposed Procedures p Screening Colonoscopy - Sawyer Fernando MD Date/Time: 01/15/25 11:59 Surgeon: Sawyer Fernando MD Pre Op Diagnosis: Screening Patient Data Age: 54 Gender: M Height: 1.8 m Weight: 101.4 kg Allergies Allergy/AdvReac Type Severity Reaction Status Date / Time No Known Allergies Allergy Verified 01/15/25 11:40 Home Medications ?Medication ?Instructions ?Recorded ?Confirmed ?Type metoprolol succinate 50 mg 50 mg PO DAILY #90 tabs 10/2801/07/25 Rx tablet,extended release 24 hr hydrochlorothiazide 25 mg tablet 25 mg PO DAILY #90 ta bs 11/06/24 01/15/25 Rx benazepril 20 mg tablet 20 mg PO BID #180 tabs 11/1801/15/25 Rx potassium chloride 10 mEq 10 meq PO DAILY #90 tabs 01/15/25 Rx tablet,extended release (Klor-Con) cholecalciferol (vitamin D3) 50 50 mcg PO DAILY #90 ca ps 01/06/25 01/15/25 Rx mcg (2,000 unit) capsule cyclobenzaprine 10 mg tablet 10 mg PO .bedtime PRN mus andrés spasm 01/06/2501/04 Rx #14 tabs diclofenac sodium 50 mg 50 mg PO BID PRN pain #30 ta bs 01/06/25 01/15/25 Rx tablet,delayed release Patient hx anesthesia problems: none Family hx anesthesia problems: none Results Review: All pre-operative results and documents have been reviewed as part of the pre- operative evaluation. [facility] Past Medical History Medical History Vitamin D deficiency BPH (benign prostatic hyperplasia) Nocturnal enuresis Autism History of asthma childhood Combined hyperlipidemia Essential hypertension Surgical History Surgical History History of prostate surgery Hx of foot surgery (~2004) benign tumor removed Family History Family History Grandparent Diabetes mellitus Hypertension Cerebrovascular accident Carcinoma of colon Family history of heart disease in male family member before age 55 Father Family history of cardiovascular disease Family history of type 2 diabetes mellitus Hypertension Family history of heart disease in male family member before age 55 Mother Family history of Parkinson's disease Social History Social History Social History: Moses lives alone, he works at [employer], [employer] and [employer]. He lives alone, drives his own car and he has friends that live nearby. He enjoys playing video games and riding his bike. Smoking status: Never smoker Second hand tobacco smoke exposure: No Alcohol intake: current Alcohol use details: occasionally Substance use: never Substance use type: does not use Do You Feel Safe in your Home?: Yes Lack of Transportation: No Lack of Food: Never True Current Housing: I Have Housing Concerned About Future Housing: No Difficulty Paying Gas/Electric Bills: No Difficulty Paying for Meds: No Currently Unemployed: No Education: Associate Degree Difficulty w/ Childcare or Family Care: No Living arrangements: alone Occupation/Education: occupation Gender identity (if verbalized by the patient): Male Spiritual care concerns: No Agree to blood products: Yes Anes - Eval Final PreProcedure Day of Procedure 01/15/25 11:59 Patient weight: obese Heart: regular rate and rhythm Lungs: clear to auscultation Airway: Mallampati scale class II Neurological: alert and oriented Last oral intake: >/= 8 hours ASA classification: III Emergent: no Anesthetic plan: proceed Anesthesia type and monitoring: general GIVS and standard monitoring Results Review: All pre-operative results and documents have been reviewed as part of the pre- operative evaluation. Informed Consent: The patient's anesthetic plan and its attendant risks and benefits were di scussed with the patient/family/POA. Questions were solicited and answers provided to the satisfaction of the patient/family/POA.
[2025-01-15] MEDS: LACTATED RINGERS 1,000 ML 150 ML IV CONT (12:08)
--- NOTE | 2025-01-15 13:21 | PM.HPGS ---
History of Present Illness History of Present Illness Consent: Risks, benefits, and alternatives have been discussed and questions answered. Patient agrees to proceed with procedure. Chief complaint: Screening Narrative: Moses Christensen is a 54 year old male with colon polyp in 2019 Review of Systems Review of Systems: All systems reviewed & are unremarkable except as noted in HPI and below PMFSH Past Medical History Medical History (Updated 01/15/25 @ 13:21 by Sawyer Fernando MD) Colon polyp Vitamin D deficiency BPH (benign prostatic hyperplasia) Nocturnal enuresis Autism History of asthma childhood Combined hyperlipidemia Essential hypertension Surgical History Surgical History History of prostate surgery Hx of foot surgery (~2004) benign tumor removed Family History Family History Grandparent Diabetes mellitus Hypertension Cerebrovascular accident Carcinoma of colon Family history of heart disease in male family member before age 55 Father Family history of cardiovascular disease Family history of type 2 diabetes mellitus Hypertension Family history of heart disease in male family member before age 55 Mother Family history of Parkinson's disease Social History Social History Social History: Moses lives alone, he works at [employer], [employer] and [employer]. He lives alone, drives his own car and he has friends that live nearby. He enjoys playing video games and riding his bike. Smoking status: Never smoker Second hand tobacco smoke exposure: No Alcohol intake: current Alcohol use details: occasionally Substance use: never Substance use type: does not use Do You Feel Safe in your Home?: Yes Lack of Transportation: No Lack of Food: Never True Current Housing: I Have Housing Concerned About Future Housing: No Difficulty Paying Gas/Electric Bills: No Difficulty Paying for Meds: No Currently Unemployed: No Education: Associate Degree Difficulty w/ Childcare or Family Care: No Living arrangements: alone Occupation/Education: occupation Gender identity (if verbalized by the patient): Male Spiritual care concerns: No Agree to blood products: Yes Meds Home Medications and Allergies Home Medications ?Medication ?Instructions ?Recorded ?Confirmed ?Type metoprolol succinate 50 mg 50 mg PO DAILY #90 tabs 10/11/24 01/07/25 Rx tablet,extended release 24 hr hydrochlorothiazide 25 mg tablet 25 mg PO DAILY #90 tabs 11/06/24 01/15/25 Rx benazepril 20 mg tablet 20 mg PO BID #180 tabs 11/18/24 01/15/25 Rx potassium chloride 10 mEq 10 meq PO DAILY #90 tabs 11/18/24 01/15/25 Rx tablet,extended release (Klor-Con) cholecalciferol (vitamin D3) 50 50 mcg PO DAILY #90 caps 01/06/25 01/15/25 Rx mcg (2,000 unit) capsule cyclobenzaprine 10 mg tablet 10 mg PO .bedtime PRN muscle spasm 01/06/25 01/15/25 Rx #14 tabs diclofenac sodium 50 mg 50 mg PO BID PRN pain #30 tabs 01/06/25 01/15/25 Rx tablet,delayed release Allergies Allergy/AdvReac Type Severity Reaction Status Date / Time No Known Allergies Allergy Verified 01/15/25 11:40 Vital Signs Vital Signs - 24 hr 01/15/25 11:40 Temperature 98.2 F Pulse Rate 106 H Respiratory Rate 18 Blood Pressure 106/80 Pulse Oximetry 96 Oxygen Delivery Room Air Exam Const: General: comfortable and no acute distress HENMT: Face/Nose/Sinus: Normal nares present Eyes: General: appearance normal, both eyes and all related structures Neck: Neck: no JVD Resp: Auscultation: clear to auscultation bilaterally Cardio: Rate: regular rate Rhythm: regular rhythm GI: Inspection: non-distended GI Palp: Yes Soft to palpation Skin: General skin exam: normal color Extrem: General: normal to inspection Psych: Mental Status: mental status grossly normal Assessment and Plan Assessment and plan (1) Colon polyp: Code(s): K63.5 - Polyp of colon Status: Acute Assessment and Plan: colonoscopy
[2025-01-15 13:37] VITALS: BP 85/58; PULSE 78; RESP 18; O2SAT 96
--- NOTE | 2025-01-15 13:38 | S_PTH ---
PATIENT: Moses Christensen LOC: [facility]#:[id number] AGE/SX: 54/M ROOM: RE01/15/[address]: Sawyer Fernando MD : 1970 BED: DIS: 01/15/2025 SPEC #: [id number] RECD: 01/15/25 14:09 STATUS: PAULIE REQ #: [id number] CRISTINA: 01/15/25 13:[address]: Sawyer Fernando DEPT: [facility] Surgical RECD BY: Ruth Hurt ENTERED: 01/15/25 14:10 SP TYPE: Surgical OTHR DR: Yelena Lamb MD Tissues: A - Colon Polypectomy Procedures: Hematoxylin and Eosin Stain Gross and Microscopic Level 4
[2025-01-15 13:47] VITALS: BP 93/63; PULSE 79; RESP 18; O2SAT 98
[2025-01-15 13:57] VITALS: BP 103/70; PULSE 76; RESP 18; O2SAT 99
== END 2025-01-15 14:08 | disposition home or self-care (01) ==
PROVIDERS: PCP Family Medicine; Referring Provider Nurse Practitioner Family; Visit Provider Internal Medicine Gastroenterology
PROC: 0DJD8ZZ Inspection of Lower Intestinal Tract, Via Natural or Artificial Opening Endoscopic (ICD-10-PCS; CPT 45378; principal; 2025-01-15 13:00)
DX: Z12.11 Encounter for screening for malignant neoplasm of colon (principal); D12.5 Benign neoplasm of sigmoid colon; K64.8 Other hemorrhoids; E66.9 Obesity, unspecified; Z68.31 Body mass index [BMI] 31.0-31.9, adult
CPT/HCPCS: 45385; 88305; J2003; J2704; J7120